=== PATIENT | female | born 1970 | race Caucasian/White ===

== ENCOUNTER 2019-04-19 08:16 | Outpatient (CLI) | payer MEDICAID, SELFPAY ==
--- NOTE | 2019-04-19 08:23 | USCV_ITS ---
Emerald Khalil Age: 48 Gender: F : 1970 Exam Date: 04/19/2019 08:51 Ordering Phys: Thong Campbell MD Technologist: Brooke Cline [place] [facility] [place]: DIZZINESS ON STANDING Risk Factors: HX STOMACH SLEEVE SURGERY, OBESITY Previous Vascular Surgery: Right Brachial BP: / Left Brachial BP: / Right Left Velocity (cm/s) Spectral Plaque Velocity (cm/s) Spectral Plaque Syst/Diast Broadening Syst/Diast Broadening 123.50/50.70 Prox CCA 118.30/ 40.80 111.40/37.50 Mid CCA 113.10/ 40.80 127.90/46.30 Distal CCA 118.30/ 43.40 86.00/ 37.50 Prox ICA 102.50/ 38.10 117.00/47.30 Mid ICA 96.00 / 48.60 126.20/53.90 Distal ICA 90.70 / 36.80 83.80 ECA 114.40 1.13 ICA/CCA 0.91 Antegrade Vertebral Antegrade 65.70/ 26.30 cm/s 59.20/ 25.00 cm/s Tri Subclavian Tri FINDINGS Minimal plaques at the bifurcations bilaterally. Intimal thickening in the common carotid arteries bilaterally. Antegrade flow in the vertebral arteries bilaterally. Normal Doppler flow velocities CONCLUSIONS Minimal plaques at the bifurcations and proximal internal carotid arteries bilaterally. No significant stenosis, based on the above findings Dr Sameer Mcdaniels MD [facility] (Electronically Signed) Final Date: 19 April 2019 19:32 S
--- NOTE | 2019-04-19 08:23 | US_ITS ---
WS: [id number] ULTRASOUND ABDOMEN LIMITED CLINICAL INFORMATION: ABDOMINAL PAIN COMPARISON: None. FINDINGS: Liver Size: Normal. Craniocaudal length: 15.5 cm. Echogenicity: Normal. Surface nodularity: None. Mass (size and location): None. Bile ducts Intrahepatic ducts: Normal. Common bile duct diameter: 3.1 mm. Gallbladder Normal. Gallstones: None. Gallbladder sludge: None. Gallbladder wall thickening: None. Pericholecystic fluid: None. Sonographic Daigle sign: Absent. Pancreas Normal as visualized. Right kidney: Normal. Hydronephrosis: None. Size: 9.7 cm x 5.1 cm x 5.2 cm. Abdominal aorta and IVC Visualized portions are normal. Ascites: None. US/US gall bladder [id number] IMPRESSION: Normal abdominal ultrasound
== END 2019-04-19 08:17 | disposition home or self-care (01) ==
LOC: RAD 08:18
PROVIDERS: Family Provider Family Medicine; PCP Nurse Practitioner Family; Visit Provider Surgery
DX: R10.9 Unspecified abdominal pain (principal); R42 Dizziness and giddiness; E66.9 Obesity, unspecified; Z98.84 Bariatric surgery status
CPT/HCPCS: 76705; 93880

== ENCOUNTER → 2019-05-17 13:13 | Outpatient (BNVA) | payer MEDICAID, SELFPAY | PROVIDERS: Family Provider Family Medicine; PCP Nurse Practitioner Family; Visit Provider Specialist | DX: G62.9 Polyneuropathy, unspecified (principal) | CPT/HCPCS: 99214 ==

== ENCOUNTER → 2019-07-14 08:06 | Outpatient (BNVA) | payer MEDICAID, SELFPAY | PROVIDERS: Family Provider Family Medicine; PCP Nurse Practitioner Family; Visit Provider Psychiatry & Neurology Psychiatry | DX: F33.42 Major depressive disorder, recurrent, in full remission (principal); F17.200 Nicotine dependence, unspecified, uncomplicated | CPT/HCPCS: 90832 ==

== ENCOUNTER → 2019-09-09 07:25 | Outpatient (BNVA) | payer MEDICAID, SELFPAY | PROVIDERS: Family Provider Family Medicine; PCP Nurse Practitioner Family; Visit Provider Psychiatry & Neurology Psychiatry | DX: F33.42 Major depressive disorder, recurrent, in full remission (principal); F17.200 Nicotine dependence, unspecified, uncomplicated | CPT/HCPCS: 99213 ==

== ENCOUNTER → 2019-12-13 07:50 | Outpatient (BNVA) | payer MEDICAID, SELFPAY | PROVIDERS: Family Provider Family Medicine; PCP Nurse Practitioner Family; Visit Provider Psychiatry & Neurology Psychiatry | DX: F33.42 Major depressive disorder, recurrent, in full remission (principal); G62.9 Polyneuropathy, unspecified; G25.81 Restless legs syndrome; Z87.891 Personal history of nicotine dependence; R29.90 Unspecified symptoms and signs involving the nervous system | CPT/HCPCS: 99213; 99214 ==

== ENCOUNTER 2019-12-13 14:59 | Outpatient (CLI) | payer MEDICAID, SELFPAY ==
[2019-12-13 16:32] LABS: CRP High Sensitivity Cardiac < 0.150 mg/dL (0.0-0.3); Creatine Phosphokinase 44 U/L (26-192); Ferritin 275 ng/mL (15-150); Iron 82 ug/dL (37-145); Percent Saturation 31.4 % (20-50); Total Iron Binding Capacity 261 mcg/dl; Unsaturated Iron Binding 179 ug/dL (112-347)
[2019-12-13 16:41] LABS: Vitamin B12 377 pg/mL (232-1245)
[2019-12-13 17:18] LABS: Erythrocyte Sedimentation Rate 20 mm/hr (0-15)
== END 2019-12-13 15:00 | disposition home or self-care (01) ==
LOC: LAB 15:03
PROVIDERS: PCP Nurse Practitioner Family; Visit Provider Specialist
DX: G62.9 Polyneuropathy, unspecified (principal); G25.81 Restless legs syndrome
CPT/HCPCS: 36415; 82550; 82607; 82728; 83540; 83550; 85651; 86141

== ENCOUNTER → 2020-02-14 07:46 | Outpatient (BNVA) | payer MEDICAID, SELFPAY | PROVIDERS: PCP Nurse Practitioner Family; Visit Provider Psychiatry & Neurology Psychiatry | DX: F33.42 Major depressive disorder, recurrent, in full remission (principal) | CPT/HCPCS: 99213 ==

== ENCOUNTER 2020-04-05 09:20 | Outpatient (CLI) | payer MEDICAID, SELFPAY ==
--- NOTE | 2020-04-05 09:30 | USCV_ITS ---
KhalilEmerald Age: 49 Gender: F : 1970 Exam Date: 04/05/2020 09:32 Ordering Phys: Gisell Jha NP Technologist: Sandi Guardado [place] [facility] [place]ication: LEFT KNEE PAIN HISTORY: Lower extremity pain. PROCEDURES: Venous duplex imaging was performed in only the left lower extremity. The following venous structures were evaluated: common femoral vein, profunda vein, proximal portion of the greater saphenous vein, superficial femoral vein, and the popliteal vein. In addition, the posterior tibial and peroneal trunk were evaluated. FINDINGS: Normal 2-D Doppler and augmentation and compressibility throughout the lower extremity venous structures. Additional imaging through the proximal calf veins also reveals no thrombus. Limited evaluation of the greater saphenous vein is patent with no thrombus.. CONCLUSIONS No evidence of left lower extremity DVT. Axel Núñez MD (Electronically Signed) Final Date: 05 April 2020 14:21 S
== END 2020-04-05 09:21 | disposition home or self-care (01) ==
LOC: RAD 09:20
PROVIDERS: PCP Nurse Practitioner Family; Visit Provider Nurse Practitioner Family
DX: M25.562 Pain in left knee (principal)
CPT/HCPCS: 93971

== ENCOUNTER → 2020-04-30 14:17 | Outpatient (BNVA) | payer MEDICAID, SELFPAY | PROVIDERS: PCP Nurse Practitioner Family; Referring Provider Nurse Practitioner Family; Visit Provider Specialist | DX: M25.562 Pain in left knee (principal); M17.0 Bilateral primary osteoarthritis of knee; D16.22 Benign neoplasm of long bones of left lower limb | CPT/HCPCS: 73560; 73565 ==

== ENCOUNTER → 2020-05-08 08:17 | Outpatient (BNVA) | payer MEDICAID, SELFPAY | PROVIDERS: PCP Nurse Practitioner Family; Visit Provider Psychiatry & Neurology Psychiatry | DX: F33.42 Major depressive disorder, recurrent, in full remission (principal) | CPT/HCPCS: 99213 ==

== ENCOUNTER 2020-06-13 11:28 | Outpatient (CLI) | payer MEDICAID, SELFPAY ==
--- NOTE | 2020-06-13 11:45 | MR_ITS ---
WS: [id number] MRI LEFT KNEE NONCONTRAST TECHNIQUE: Axial PD, coronal PD fat sat, coronal PD, sagittal PD, and sagittal PD fat-sat images obta ined. CLINICAL INFORMATION: M25.562 - Pain in left knee COMPARISON: None. FINDINGS: Advanced tricompartmental arthritis left knee. Joint space narrowing with hypertrophic changes along the joint line. Hypertrophic patella. Advanced joint space narrowing medial and lateral joint compart ments with subchondral edema in the lateral femoral condyle and tibial plateau. Hypertrophic spurring with subchondral cystic change involving the lateral tibial plateau. Gers-rb-[id number] articulation in th e medial and lateral joint compartments. Small joint effusion. Distal quadriceps and patella tendons are intact. Normal ACL and PCL. Chronic thinning of the medial and lateral meniscus. This is worse involving the lateral meniscus. Advanced chondromalacia patella. Normal patellar retinaculum. Normal popliteal fossa. Moderate diffuse edema involving the left knee s oft tissues. Lobulated ganglion cyst involving the left infrapatellar bursa measuring 2.5 x 1.5 cm. MR/MR knee LT wo con* [id number] IMPRESSION: 1. Advanced tricompartmental arthritis with hypertrophic patella. 2. Complete loss of the medial and lateral joint spaces with [id number] flaquito culation and subchondral edema involving the lateral femoral condyle and tibial plateau likely due to chronic microtrauma and degenerative change. 3. Small joint and suprapatellar effusion. 4. Advanced chondromalacia patella 5. Lobulated left eccentric infrapatellar ganglion cyst measuring 2.5 x 1.5 CM . 6. Advanced chronic thinning of the medial and lateral meniscus.
== END 2020-06-13 11:29 | disposition home or self-care (01) ==
LOC: RADSHAW 11:30
PROVIDERS: PCP Nurse Practitioner Family; Visit Provider Specialist
DX: M25.562 Pain in left knee (principal); R26.9 Unspecified abnormalities of gait and mobility; R20.0 Anesthesia of skin; R20.2 Paresthesia of skin; G25.81 Restless legs syndrome; F33.42 Major depressive disorder, recurrent, in full remission; Z87.891 Personal history of nicotine dependence
CPT/HCPCS: 73721; 99213

== ENCOUNTER → 2020-06-26 11:11 | Outpatient (BNVA) | payer MEDICAID, SELFPAY | PROVIDERS: PCP Nurse Practitioner Family; Referring Provider Specialist; Visit Provider Specialist | DX: R20.0 Anesthesia of skin (principal); R20.2 Paresthesia of skin; M54.5 Low back pain; M79.652 Pain in left thigh; M79.651 Pain in right thigh; Z87.891 Personal history of nicotine dependence | CPT/HCPCS: 95909 ==

== ENCOUNTER 2020-07-19 15:33 | Outpatient (CLI) | payer MEDICAID, SELFPAY | END 2020-07-19 15:34 | disposition home or self-care (01) | LOC: SPT 15:33 | PROVIDERS: PCP Nurse Practitioner Family; Visit Provider Specialist | DX: Z46.89 Encounter for fitting and adjustment of other specified devices (principal); M17.12 Unilateral primary osteoarthritis, left knee | CPT/HCPCS: L1812 ==

== ENCOUNTER → 2020-07-31 07:27 | Outpatient (BNVA) | payer MEDICAID, SELFPAY | PROVIDERS: PCP Nurse Practitioner Family; Visit Provider Psychiatry & Neurology Psychiatry | DX: F33.42 Major depressive disorder, recurrent, in full remission (principal); R26.9 Unspecified abnormalities of gait and mobility | CPT/HCPCS: 99214 ==

== ENCOUNTER → 2020-11-12 07:20 | Outpatient (BNVA) | payer MEDICAID, SELFPAY | PROVIDERS: PCP Nurse Practitioner Family; Visit Provider Psychiatry & Neurology Psychiatry | DX: F33.42 Major depressive disorder, recurrent, in full remission (principal) | CPT/HCPCS: 99213 ==

== ENCOUNTER 2021-01-11 14:53 | Outpatient (CLI) | payer MEDICAID, SELFPAY ==
[2021-01-11 15:29] LABS: Basophils # 0.1 10^3/uL (0.0-0.1); Basophils % 0.9 %; Eosinophils # 0.1 10^3/uL (0.0-0.8); Eosinophils % 0.5 %; Hematocrit 44.6 % (37.0-47.0); Hemoglobin 14.6 g/dL (11.5-15.3); Lymphocytes # 2.1 10^3/uL (0.8-4.8); Lymphocytes % 23.4 %; Mean Corpuscular HGB Conc 32.7 g/dL (30.0-36.0); Mean Corpuscular Hemoglobin 30.3 pg (28.0-34.0); Mean Corpuscular Volume 92.5 fl (81-99); Monocytes # 0.5 10^3/uL (0.2-0.9); Monocytes % 5.1 %; Neutrophils # 6.39 10^3/uL (1.8-7.7); Neutrophils % 69.8 %; Nucleated Red Blood Cells % 0 %; Platelet Count 269 10^3/cmm (130-400); Red Blood Count 4.82 10^6/uL (4.1-5.3); Red Cell Distribution Width 12.4 % (12.1-15.1); White Blood Count 9.2 10^3/uL (4.0-10.0)
[2021-01-11 16:20] LABS: Alanine Aminotransferase 8 U/L (0-33); Alkaline Phosphatase 78 IU/L (35-105); Anion Gap 14.3 (5-19); Aspartate Amino Transferase 14 U/L (0-32); Blood Urea Nitrogen 9 mg/dL (6-20); Calcium 9.2 mg/dL (8.5-10.5); Carbon Dioxide 25 mmol/L (22-29); Chloride 108 mmol/L (98-107); Chol HDL Ratio 3.61 mg/dL (0.0-4.40); Cholesterol 206 mg/dL (0-200); Ferritin 199 ng/mL (15-150); Globulin 2.7 g/dL (1.3-4.6); Glomerular Filtration Rate 105.4 mL/min (90-130); Glucose 80 mg/dL (65-115); HDL Cholesterol 57 mg/dL (60-100); Iron 85 ug/dL (37-145); LDL Cholesterol Calculated 130 mg/dL (50-129); LDL HDL Ratio 2.28 RATIO (0.00-3.22); Magnesium 2.1 mg/dL (1.7-2.3); Osmolality Calculated 294 mOsm/kg (285-295); Percent Saturation 27.8 % (20-50); Potassium 4.3 mmol/L (3.5-5.1); Sodium 143 mmol/L (136-145); Thyroid Stimulating Hormone 1.08 uIU/mL (0.27-4.20); Total Bilirubin 0.4 mg/dL (0.15-1.2); Total Iron Binding Capacity 305 mcg/dl; Total Protein 6.7 g/dL (6.6-8.7); Triglycerides 97 mg/dL (0-150); Unsaturated Iron Binding 220 ug/dL (112-347); Vitamin B12 174 pg/mL (232-1245)
[2021-01-11 16:24] LABS: Calcium 9.2 mg/dL (8.5-10.5)
[2021-01-11 16:25] LABS: Parathyroid Hormone 60.9 pg/mL (15-65)
[2021-01-11 18:17] LABS: Folate Level 7.5 ng/mL (4.8-37.3)
== END 2021-01-11 14:54 | disposition home or self-care (01) ==
PROVIDERS: PCP Nurse Practitioner Family; Visit Provider Surgery
DX: E88.81 Metabolic syndrome and other insulin resistance (principal)
CPT/HCPCS: 36415; 80053; 80061; 82310; 82607; 82728; 82746; 83540; 83550; 83735; 83970; 84443; 85025

== ENCOUNTER → 2021-02-11 08:28 | Outpatient (BNVA) | payer MEDICAID, SELFPAY | PROVIDERS: PCP Nurse Practitioner Family; Visit Provider Psychiatry & Neurology Psychiatry | DX: F33.42 Major depressive disorder, recurrent, in full remission (principal) | CPT/HCPCS: 99213 ==

== ENCOUNTER → 2021-02-20 15:14 | Outpatient (BNVA) | payer MEDICAID, SELFPAY | PROVIDERS: PCP Nurse Practitioner Family; Visit Provider Specialist | DX: M17.11 Unilateral primary osteoarthritis, right knee (principal) | CPT/HCPCS: 73560; 73565 ==

== ENCOUNTER 2021-05-16 17:16 | Observation (INO) | payer MEDICAID, SELFPAY ==
[2021-05-16 17:25] VITALS: BP 134/86; PULSE 80; RESP 14; TEMP 37; O2SAT 98; BMI 28.1
--- NOTE | 2021-05-16 17:57 | CTR_ITS ---
PROCEDURE INFORMATION: Exam: CT Head Without Contrast Exam date and time: 05/16/2021 5:57 PM Age: 50 years old Clinical indication: Numbness / parasthesia and visual disturbance; Left; Additional info: Stroke like symptoms. Left sided facial and arm numbness and blurred vision TECHNIQUE: Imaging protocol: Computed tomography of the head without contrast. Radiation optimization: All CT scans at this facility use at least one of these dose optimization techniques: automated exposure control; mA and/or kV adjustment per patient size (includes targeted exams where dose is matched to clinical indication); or iterative reconstruction. COMPARISON: MR head wo con* [id number] 08/28/2017 8:11 AM RADIATION DOSE METRICS: Total DLP (mGy-cm): 826.86 FINDINGS: Brain: Bifrontal cortical volume loss. No abnormal brain attenuation. No intracranial hemorrhage. Cerebral ventricles: No ventriculomegaly. Paranasal sinuses: Visualized sinuses are unremarkable. No fluid levels. Mastoid air cells: Visualized mastoid air cells are well aerated. Bones/joints: Unremarkable. No acute fracture. Soft tissues: Unremarkable. CT/CT head wo con* [id number] IMPRESSION: 1. No acute intracranial abnormality.
--- NOTE | 2021-05-16 20:29 | XRR_ITS ---
PROCEDURE INFORMATION: Exam: XR Chest Exam date and time: 05/16/2021 8:29 PM Age: 50 years old Clinical indication: Chest wall pain; Additional info: Cp TECHNIQUE: Imaging protocol: XR of the chest. Views: 1 view. COMPARISON: 1. CR XR knees AP WB w RT lmt ORTH 02/20/2021 3:[address] chest w con* [id number] 05/07/2017 10:17 PM FINDINGS: Lungs: Unremarkable. No consolidation. Pleural spaces: Unremarkable. No pleural effusion. No pneumothorax. Heart/Mediastinum: Unremarkable. No cardiomegaly. Bones/joints: Mild scoliosis. XR/XR chest 1V portable [id number] IMPRESSION: No acute findings.
--- NOTE | 2021-05-16 20:29 | ECG_ITS ---
[facility] Test Date: 2021-05-16 Pat Name: Emerald Khalil Department: Room: Gender: Female Project Design Engineer: : 1970 Requested By: Nora Brunson Order Number: [id number] Reading MD: STANLEY DE LA TORRE Measurements Intervals [place] Rate: 57 P: 41 MD: 188 QRS: -13 QRSD: 94 T: 2 QT: 399 QTc: 389 Interpretive Statements SINUS BRADYCARDIA LOW QRS VOLTAGE IN PRECORDIAL LEADS [QRS DEFLECTION < 1.0 mV IN CHEST LEADS] MINIMAL VOLTAGE CRITERIA FOR LVH, CONSIDER NORMAL VARIANT [MEETS CRITERIA IN ONE OF: R(aVL), S(V1), R(V5), R(V5/V6)+S(V1)] Compared to ECG 05/07/2017 23:10:22 Low QRS voltage now present Electronically Signed On 05-16-2021 21:47:13 MUSHROOM SPAWN MAKER by STANLEY DE LA TORRE [id number]
--- NOTE | 2021-05-16 20:35 | W.ED.NEUROSD ---
HPI - Neuro Symptoms/Deficit General: Chief Complaint: Neuro Symptoms/Deficit Stated Complaint: Her Dr Said Mini Strokes Time Seen by Provider: 05/16/21 20:27 Source: patient Mode of arrival: ambulatory Limitations: no limitations History of Present Illness: 50-year-old female who states that over the last 2 weeks she has been having these episodes of dizziness. She states that she has felt dizzy and having blurred vision and difficulty walking. States it seems to come and go states today that she had no episode at roughly noon to 1 and she also had some numbness and weakness in her left arm states it felt like rubber and was having a hard time moving it. She states that all since resolved but she getting concerned as it is becoming more common. She denies any headache denies any other complaints Associated symptoms: Deny chest pain, nausea or vomiting Review of Systems Const: Denies: fever(s), chills, body aches or change in appetite Eyes: Denies: blurry vision or eye discomfort ENMT: Denies: throat pain or dental pain Card: Denies: chest pain Resp: Denies: dyspnea GI: Denies: abdominal pain, nausea, vomiting or diarrhea : Denies: dysuria Musc: Denies: neck pain or back pain Skin/Breast: Denies: rash Neuro: Reports: dizziness Psych: Denies: depression Dion/Lymph: Denies: easy bruising All/Imm: Denies: urticaria PFSH ED PFSH: Medical History Chain smoker Major depressive disorder, recurrent, in full remission Psychiatric care Surgical History History of sleeve gastrectomy Family History Other CAD (coronary artery disease) Cancer Diabetes Hypertension Denies family history of Anesthesia complication Bleeding disorder Stroke Social History Smoking and tobacco status: former smoker Quit status (tobacco): has quit using tobacco Year quit tobacco: 2014 Second hand smoke exposure: No Alcohol intake: never Adopted: No Caregiver/support person: Yes Lives independently: Yes Household members: spouse Housing: House Marital status: service: No Current occupational status: disabled Current occupational exposures/hazards: No Pets and animals: No History of recent travel: No Sexually active: Yes Current gender identity: Female Giana/Restoration: Voodoo Special giana needs: No Agree to transfusion: No Financial difficulty paying for basics: Decline to Answer NIH stroke score NIHSS: Level Of Consciousness - 1a: 0 Level Of Consciousness Questions - 1b: Both Correct Level Of Consciousness Commands - 1c: Both Correct Best Gaze - 2: Normal Visual Carter - 3: No Visual Loss Facial Palsy - 4: Normal Motor Arm Right - 5: No Drift Motor Arm Left - 5: No Drift Motor Leg Right - 6: No Drift Motor Leg Left - 6: No Drift Limb Ataxia - 7: Absent Sensory - 8: Normal Best Language - 9: No Aphasia Dysarthia - 10: Normal Extinction And Inattention - 11: 0 Score: Total Score: 0 Physical Exam Const: COMMON NORMALS: no acute distress, patient oriented x3 and healthy appearing HENMT: COMMON NORMALS: normocephalic and atraumatic HEAD & SCALP: normocephalic and atraumatic Eye: COMMON NORMALS: Equal, round and reactive pupils present and EOMs intact bilaterally PUPIL: Yes Equal, round and reactive pupils present Neck/C-Spine: COMMON NORMALS: full ROM and supple Chest: COMMONS NORMALS: normal inspection of the chest and normal palpation of entire chest wall Resp: COMMON NORMALS: normal respiratory effort, No retractions, No use of accessory muscles and clear to auscultation bilaterally AUSCULTATION: clear to auscultation bilaterally Cardio: COMMON NORMALS: regular rate, regular rhythm and No murmurs present (Cardio) RATE: regular rate RHYTHM: regular rhythm GI: COMMON NORMALS: Normal to inspection, nondistended, normoactive bowel sounds present, Soft to palpation, non-tender and no masses PALPATION: Yes Soft to palpation Extremity: COMMON NORMALS: normal to inspection and full ROM Neuro: COMMON NORMALS: patient oriented x3, moves all extremities and no focal motor deficits Psych: COMMON NORMALS: mental status grossly normal, Normal thought process present and cooperative THOUGHT PROCESS: Normal thought process present Skin: COMMON NORMALS: no rashes or lesions noted and no wounds GENERAL SKIN EXAM: no rashes or lesions noted Course Vital Signs: Vital signs: Vital Signs Temperature 98.6 F 05/16/21 17:25 Pulse Rate 80 05/16/21 17:25 Respiratory Rate 14 05/16/21 17:25 Blood Pressure 134/86 05/16/21 17:25 Pulse Oximetry 98 05/16/21 17:25 MDM - Neuro Symptoms/Deficit Medical Decision Making Patient presents here with symptoms consistent with a TIA her symptoms have since resolved since her symptoms are worsening will admit at this time spoke to hospitalist will admit for likely MRI patient given aspirin down here work-up here is normal so far. Lab Data : 05/16/21 20:35 05/16/21 20:[address] 05/16/21 17:57 IMPRESSION: 1. No acute intracranial abnormality. Chest X-Ray 05/16/21 20:29 IMPRESSION: No acute findings. Laboratory Results WBC 10.5 10^3/uL (4.0-10.0) H 05/16/21 20:35 RBC 4.83 10^6/uL (4.1-5.3) 05/16/21 20:35 Hgb 14.7 g/dL (11.5-15.3) 05/16/21 20:35 Hct 45.6 % (37.0-47.0) 05/16/21 20:35 MCV 94.4 fl (81-99) 05/16/21 20:35 MCH 30.4 pg (28.0-34.0) 05/16/21 20:35 MCHC 32.2 g/dL (30.0-36.0) 05/16/21 20:35 RDW 12.2 % (12.1-15.1) 05/16/21 20:35 Plt Count 279 10^3/cmm (130-400) 05/16/21 20:35 MPV 8.6 fL (7.4-10.4) 05/16/21 20:35 Neut % (Auto) 59.2 % 05/16/21 20:35 Lymph % (Auto) 33.6 % 05/16/21 20:35 Harper % (Auto) 5.2 % 05/16/21 20:35 Eos % (Auto) 0.7 % 05/16/21 20:35 Baso % (Auto) 1.0 % 05/16/21 20:35 Neut # (Auto) 6.22 10^3/uL (1.8-7.7) 05/16/21 20:35 Lymph # (Auto) 3.5 10^3/uL (0.8-4.8) 05/16/21 20:35 Harper # (Auto) 0.6 10^3/uL (0.2-0.9) 05/16/21 20:35 Eos # (Auto) 0.1 10^3/uL (0.0-0.8) 05/16/21 20:35 Baso # (Auto) 0.1 10^3/uL (0.0-0.1) 05/16/21 20:35 Nucleated RBC % (auto) 0 % 05/16/21: Nucleated RBCs # 0.0 /100WBC 05/16/21 20:35 PT 12.20 SECONDS (12.1-14.9) 05/16/21 20:35 INR 0.88 (0.8-1.2) 05/16/21 20:35 Sodium 137 mmol/L (136-145) 05/16/21 20:35 Potassium 4.4 mmol/L (3.5-5.1) 05/16/21 20:35 Chloride 103 mmol/L (98-107) 05/16/21 20:35 Carbon Dioxide 24 mmol/L (22-29) 05/16/21 20:35 Anion Gap 14.4 (5-19) 05/16/21 20:35 BUN 13 mg/dL (6-20) 05/16/21 20:35 Creatinine 0.6 mg/dL (0.5-0.9) 05/16/21 20:35 GFR Calculation 105.4 mL/min (90-130) 05/16/21 20:35 Glucose 76 mg/dL (65-115) 05/16/21 20:35 Calculated Osmolality 283 mOsm/kg (285-295) L 05/16/21 20:35 Calcium 9.6 mg/dL (8.5-10.5) 05/16/21 20:35 Total Bilirubin 0.3 mg/dL (0.15-1.2) 05/16/21 20:35 AST 15 U/L (0-32) 05/16/21 20:35 ALT 13 U/L (0-33) 05/16/21 20:35 Alkaline Phosphatase 87 IU/L (35-105) 05/16/21 20:35 Troponin T Baseline 6 ng/L (0-10) 05/16/21 20:35 Total Protein 6.7 g/dL (6.6-8.7) 05/16/21 20:35 Albumin 4.3 g/dL (3.5-5.2) 05/16/21 20:35 Globulin 2.4 g/dL (1.3-4.6) 05/16/21 20:35 EKG Data EKG 1: I personally reviewed and interpreted this EKG as follows: EKG interpretation date: 05/16/21 EKG interpretation time: 21:30 Interpretation: sinus ana lilia hr [address] or t wave abnormalities qrs 94 qtc 393 Discharge Plan Discharge Patient Disposition: Admitted As Inpatient Clinical Impression: Brain TIA Condition: Stable Coding Level of Care Code ED Heating Unit Installer for Jerry Fwd Exam Comprehensive
[2021-05-16 20:47] LABS: Basophils # 0.1 10^3/uL (0.0-0.1); Eosinophils # 0.1 10^3/uL (0.0-0.8); Eosinophils % 0.7 %; Hematocrit 45.6 % (37.0-47.0); Hemoglobin 14.7 g/dL (11.5-15.3); Lymphocytes # 3.5 10^3/uL (0.8-4.8); Lymphocytes % 33.6 %; Mean Corpuscular HGB Conc 32.2 g/dL (30.0-36.0); Mean Corpuscular Hemoglobin 30.4 pg (28.0-34.0); Mean Corpuscular Volume 94.4 fl (81-99); Mean Platelet Volume 8.6 fL (7.4-10.4); Monocytes # 0.6 10^3/uL (0.2-0.9); Monocytes % 5.2 %; Neutrophils # 6.22 10^3/uL (1.8-7.7); Neutrophils % 59.2 %; Nucleated Red Blood Cells % 0 %; Platelet Count 279 10^3/cmm (130-400); Red Blood Count 4.83 10^6/uL (4.1-5.3); Red Cell Distribution Width 12.2 % (12.1-15.1); White Blood Count 10.5 10^3/uL (4.0-10.0)
[2021-05-16 21:19] LABS: INR 0.88 (0.8-1.2)
[2021-05-16 21:28] LABS: Troponin(5th) Baseline 6 ng/L (0-10)
[2021-05-16 21:29] LABS: Alanine Aminotransferase 13 U/L (0-33); Albumin Level 4.3 g/dL (3.5-5.2); Alkaline Phosphatase 87 IU/L (35-105); Anion Gap 14.4 (5-19); Aspartate Amino Transferase 15 U/L (0-32); Blood Urea Nitrogen 13 mg/dL (6-20); Calcium 9.6 mg/dL (8.5-10.5); Carbon Dioxide 24 mmol/L (22-29); Chloride 103 mmol/L (98-107); Globulin 2.4 g/dL (1.3-4.6); Glomerular Filtration Rate 105.4 mL/min (90-130); Glucose 76 mg/dL (65-115); Osmolality Calculated 283 mOsm/kg (285-295); Potassium 4.4 mmol/L (3.5-5.1); Sodium 137 mmol/L (136-145); Total Bilirubin 0.3 mg/dL (0.15-1.2); Total Protein 6.7 g/dL (6.6-8.7)
[2021-05-16 22:24] LABS: Troponin 5 2HR 7.72 ng/L (0-10)
[2021-05-16 22:35] LABS: Troponin 5 2HR Delta 1.72 ABS# (0-10)
--- NOTE | 2021-05-16 22:38 | P.HP_ITS ---
Providers/Chief Complaint Primary Care Provider: Gisell Jha NP Chief Complaint: Her Dr Said Mini Strokes History of Present Illness Emerald Khalil is a 50 year old female history of smoking, history of sleeve gastrectomy, restless leg, anxiety and depression, who presents [facility] due to diplopia, left arm numbness. Patient tells me that she has a chronic history of diplopia, double vision, typically vertical diplopia, she saw her actuarial science professor who did an eye exam and told her that her eye exam was okay, to follow-up with her primary care her diplopia continue to become more progressive, more frequent, this morning, she had a significant episode of vertical diplopia, associate with left arm numbness, left arm weakness lasted a few minutes, and abated, she presented to her primary care provider who told her to come to the emergency room, here she is asymptomatic, NIH stroke scale 0, CT head negative for acute stroke, no acute bleed, hospitalist team was called for admission for concern for TIA. Review of Systems Const: Denies: fever(s), chills, fatigue or malaise Eyes: Denies: change in vision or blurry vision ENMT: Denies: nasal congestion Card: Reports: palpitations; Denies: chest pain, irregular heart rhythm, edema, lightheadedness, syncope, pre-syncope, dyspnea on exertion or orthopnea Resp: Denies: dyspnea, productive cough, non-productive cough or wheezing GI: Denies: abdominal pain, nausea, vomiting, hematemesis, diarrhea, constipation, hematochezia or melena : Denies: flank pain, dysuria or urinary frequency Musc: Denies: neck pain or back pain Skin/Breast: Denies: rash Neuro: Reports: numbness in extremities, weakness in extremities and lack of coordination; Denies: headache(s), difficulty walking, frequent falls, dizziness, vertigo, Slurred speech present or difficulty communicating thoughts Psych: Reports: anxiety; Denies: depression Endo: Denies: polyuria or polydipsia Medications/Allergies Home Medications Medication Instructions Recorded Confirmed Last Taken Type famotidine 20 mg tablet (Pepcid) 10 mg PO BID tab 05/12/19 05/16/21 Unknown History multivitamin 1 cap PO DAILY 05/17/19 05/16/21 Unknown History omalizumab 150 mg/mL subcutaneous 300 mg SUBCUT .COMPLEX ml 05/17/19 05/16/21 Unknown History syringe (Xolair) cetirizine 10 mg tablet (All Day 10 mg PO DAILY 12/09/19 05/16/21 Unknown History Allergy (cetirizine)) montelukast 10 mg tablet 10 mg PO DAILY #30 tab 07/17/20 05/16/21 Unknown Rx (Singulair) ropinirole 0.25 mg tablet See Rx Instructions .ROUTE 07/17/20 05/16/21 Unknown Rx .COMPLEX #60 unspecified HINGED KNEE BRACE #1 ea NS 07/19/20 05/16/21 Unknown Rx sertraline 100 mg tablet (Zoloft) 100 mg PO DAILY #30 tab 07/31/20 05/16/21 Unknown Rx hydroxyzine HCl 25 mg tablet 25 mg PO QID PRN #60 tab 08/22/20 05/16/21 Unknown Rx Allergies Allergy/AdvReac Type Severity Reaction Status Date / Time amoxicillin Allergy Unknown Unknown Verified 05/16/21 14:12 Penicillins Allergy Unknown Unknown Verified 05/16/21 14:12 Latex, Natural Rubber Allergy hives Verified 05/16/21 14:12 Alpha-gal Allergy Unknown Uncoded 05/16/21 14:12 PFSH Acute PFSH: Medical History Chain smoker Major depressive disorder, recurrent, in full remission Psychiatric care Surgical History History of sleeve gastrectomy Family History Other CAD (coronary artery disease) Cancer Diabetes Hypertension Denies family history of Anesthesia complication Bleeding disorder Stroke Social History Smoking and tobacco status: former smoker Quit status (tobacco): has quit using tobacco Year quit tobacco: 2014 Second hand smoke exposure: No Alcohol intake: never Adopted: No Caregiver/support person: Yes Lives independently: Yes Household members: spouse Housing: House Marital status: service: No Current occupational status: disabled Current occupational exposures/hazards: No Pets and animals: No History of recent travel: No Sexually active: Yes Current gender identity: Female Giana/Muslim: Taoist Special giana needs: No Agree to transfusion: No Financial difficulty paying for basics: Decline to Answer Vitals/I&O/Wt Last Vital Signs Temp 98.6 F 05/16/21 17:25 Pulse 80 05/16/21 17:25 Resp 14 05/16/21 17:25 BP 134/86 05/16/21 17:25 Pulse Ox 98 05/16/21 17:25 Weight last 48 hrs Weight 81.647 kg Physical Exam Const: COMMON NORMALS: no acute distress and patient oriented x3 GENERAL APPEARANCE: cooperative, well kempt and well developed HENMT: COMMON NORMALS: normocephalic, Normal external nose present and oropharynx normal FACE & SINUS: normal facial exam NOSE: Normal external nose present Eye: COMMON NORMALS: Equal, round and reactive pupils present, EOMs intact bilaterally, conjunctivae normal and no scleral icterus CONJUNCTIVA: Yes conjunctivae normal PUPIL: Yes Equal, round and reactive pupils present Neck/C-Spine: COMMON NORMALS: full ROM, no lymphadenopathy, no JVD, Thyroid normal and No carotid bruits THYROID: Thyroid normal Lymph: LYMPHATIC: no lymphadenopathy noted Chest: COMMONS NORMALS: normal inspection of the chest Resp: COMMON NORMALS: normal respiratory effort, No retractions, No use of a ccessory muscles and clear to auscultation bilaterally AUSCULTATION: clear to auscultation bilaterally Cardio: COMMON NORMALS: regular rate, regular rhythm, S1 normal heart sound present, S2 normal heart sound present, No murmurs present (Cardio) and Peripheral pulses 2+ throughout RATE: regular rate RHYTHM: regular rhythm HEART SOUNDS: S1 normal heart sound present and S2 normal heart sound present PERIPHERAL PULSES: Peripheral pulses 2+ throughout GI: COMMON NORMALS: Normal to inspection, nondistended, normoactive bowel sounds present, Soft to palpation, non-tender and No hepatosplenomegaly present PALPATION: Yes Soft to palpation and Yes No hepatosplenomegaly present : COMMON NORMALS: Yes no CVA tenderness Extremity: COMMON NORMALS: normal to inspection, full ROM, capillary refill normal, no calf tenderness and no pedal edema Neuro: COMMON NORMALS: patient oriented x3, CN's II-XII intact bilaterally, moves all extremities, no focal motor deficits and no sensory deficits noted Psych: COMMON NORMALS: mental status grossly normal, Normal thought process present, cooperative and speech normal APPEARANCE: Yes well kempt SPEECH: Yes normal speech THOUGHT PROCESS: Normal thought process present Skin: COMMON NORMALS: turgor normal and no jaundice GENERAL SKIN EXAM: turgor normal Data : 05/16/21 20:35 05/16/21 20:35 A&P Assessment and plan (1) Brain TIA: Status: Acute (2) Vertical diplopia: Status: Acute Plan TIA with vertical diplopia -Current NIH stroke scale 0 -CT of the head negative for acute stroke -Has received aspirin 325 -Continue neurochecks, NIH stroke scale, -Monitor for diplopia -Aspirin, statin -Continue gentle IV hydration -History of sleeve gastrectomy, Protonix 40 twice daily -Advised to quit smoking -Cardiac echo, carotid ultrasound -Does have complaints of intermittent palpitations, telemetry monitoring, does have a family history of atrial fibrillation, consider discharging on event monitor -We will hold off on brain MRI -As she has chronic complaints of vertical diplopia, order TSH, acetylcholine receptor antibodies, B12, folate, ESR, likely will need to follow-up with neurology as outpatient -Full code -Lovenox for DVT prophylaxis Attestations Medical Necessity Statement*: Patient requires hospitalization, outpatient wit h observation, for TIA Coding Level of Care Code Acute Cheesemaking Laborer for Jerry Reyes Diagnoses Brain TIA G45.9 Vertical diplopia H53.2
[2021-05-16] MEDS: aspirin 81 mg Chew Tablet 324 MG PO (23:08)
[2021-05-16 23:09] VITALS: BP 129/84; PULSE 82; RESP 16; TEMP 37; O2SAT 98
[2021-05-16 23:46] LABS: Erythrocyte Sedimentation Rate 27 mm/hr (0-15)
[2021-05-17] LABS: Estmated Average Glucose 111; Hemoglobin A1C 5.5 % (4.0-6.0)
[2021-05-17 00:32] LABS: Chol HDL Ratio 3.77 mg/dL (0.0-4.40); Cholesterol 260 mg/dL (0-200); HDL Cholesterol 69 mg/dL (60-100); LDL Cholesterol Calculated 173 mg/dL (50-129); LDL HDL Ratio 2.51 RATIO (0.00-3.22); Thyroid Stimulating Hormone 1.02 uIU/mL (0.27-4.20); Triglycerides 88 mg/dL (0-150)
[2021-05-17 01:42] VITALS: BP 135/74; PULSE 79; RESP 16; TEMP 37; O2SAT 97
[2021-05-17 02:59] LABS: Vitamin B12 159 pg/mL (232-1245)
[2021-05-17 03:00] LABS: Folate Level 6.4 ng/mL (4.8-37.3)
[2021-05-17 04:00] LABS: Troponin 5 6HR Delta 0 ng/L (0-12)
[2021-05-17 04:22] VITALS: BP 142/86; PULSE 75; RESP 16; TEMP 37; O2SAT 97
--- NOTE | 2021-05-17 05:00 | USCV_ITS ---
Emerald Khalil Age: 50 Gender: F : 1970 Exam Date: 05/17/2021 05:21 Ordering Phys: Derrell Miller MD Technologist: Padmini Rojo Exam Location: [facility] – [place] Indication: LT EYE VISION LOSS BP: / HR: 52 Rhythm: Sinus Technical Quality: Adequate MEASUREMENTS (Male / Female) Normal Values 2D ECHO LV Diastolic Diameter PLAX 3.6 cm 4.2 - 5.9 / 3.9 - 5.3 cm LV Systolic Diameter PLAX 2.5 cm LV Chamber Size 4.1 cm IVS Diastolic Thickness 1.0 cm 0.6 - 1.0 / 0.6 - 0.9 cm IVS Systolic Thickness 1.7 cm LVPW Diastolic Thickness 1.2 cm 0.6 - 1.0 / 0.6 - 0.9 cm LVPW Systolic Thickness 1.7 cm RV Chamber Size 3.4 cm LVOT Diameter 2.0 cm LV Ejection Fraction 2D Teich 60.9 % LV Ejection Fraction MOD 2C 57.5 % LV Ejection Fraction 2C AL 59.7 % LA Diameter 2.3 cm LA Width 3.7 cm LA Height 4.0 cm RA Width 3.3 cm RA Height 3.5 cm Aorta at Sinotubular Diameter 3.1 cm M-MODE Aortic Annulus Diameter 3.2 cm LA Ao Ratio MM 0.8 MV E Point Septal Separation 0.2 cm DOPPLER AV Peak Velocity 128.0 cm/s LVOT Peak Velocity 84.0 cm/s AV Area Cont Eq vti 1.9 cm squared AV Area Cont Eq pk 2.1 cm squared MV Area PHT 4.9 cm squared Mitral E to A Ratio 1.3 MV E' Velocity 47.0 cm/s Mitral E to MV E' Ratio 6.8 Mitral E to LV E' Lateral Ratio 5.6 Mitral E to LV E' Septal Ratio 8.6 TR Peak Velocity 216.9 cm/s TR Peak Gradient 18.8 mmHg TR Mean Velocity 138.2 cm/s TR Mean Gradient 8.8 mmHg TR Velocity Time Integral 40.3 cm TV Peak E Velocity 69.0 cm/s Right Atrial Pressure 3.0 mmHg Pulmonary Artery Systolic Pressu 21.8 mmHg PV Peak Velocity 43.0 cm/s RV Acceleration Time 0.2 s RV Ejection Time 0.4 s RV AcT/ET 0.5 FINDINGS Left Ventricle Normal left ventricular size. LV systolic function is normal with EF of 55-60%. No regional wall motion abnormalities. Right Ventricle The right ventricle is normal in size and function. Right Atrium The right atrium is normal in size. Left Atrium The left atrium is normal in size. Mitral Valve Structurally normal mitral valve without significant stenosis or prolapse. There is no mitral regurgitation. Aortic Valve Grossly normal without significant stenosis. There is no aortic regurgitation. Tricuspid Valve Not well visualized. Trace tricuspid regurgitation. Pulmonary artery systolic pressure is normal. Pulmonic Valve Not visualized Pericardium Normal pericardium without effusion. Aorta Normal ascending aorta dimension. CONCLUSIONS Technically limited quality echocardiogram because of poor ultrasonic windows. LV systolic function is normal with EF of 55-60% Valvular structures are not well-visualized however are grossly normal. No comparison studies are available Van Frazier MD (Electronically Signed) Final Date: 17 May 2021 12:48 S
--- NOTE | 2021-05-17 05:00 | USCV_ITS ---
Emerald Khalil Age: 50 Gender: F : 1970 Exam Date: 05/17/2021 05:48 Ordering Phys: Derrell Miller MD Technologist: Padmini Rojo [place] [facility] [place]: DIPLOPIA LT EYE Risk Factors: Unknown Previous Vascular Surgery: None Right Brachial BP: / Left Brachial BP: / Right Left Velocity (cm/s) Spectral Plaque Velocity (cm/s) Spectral Plaque Syst/Diast Broadening Syst/Diast Broadening 111.40/40.80 Prox CCA 89.40 / 21.00 87.10/ 30.90 Mid CCA 70.60 / 26.50 73.90/ 24.30 Distal CCA 51.80 / 20.90 68.40/ 25.40 Hetro Prox ICA 72.80 / 28.70 Hetro 68.40/ 26.50 Mid ICA 63.90 / 37.50 94.80/ 35.30 Distal ICA 72.80 / 30.90 73.90 ECA 84.90 0.85 ICA/CCA 0.81 Antegrade Vertebral Antegrade 42.20/ 17.10 cm/s 58.60/ 26.70 cm/s Tri Subclavian Tri 122.3 118.6 0 0 CONCLUSIONS Right ICA stenosis <50%. Mild atheromatous plaque right carotid bulb/ICA. Left ICA stenosis <50%. Mild atheromatous plaque left carotid bulb/ICA. Normal antegrade Doppler flow noted in the right vertebral artery. Normal antegrade Doppler flow noted in the left vertebral artery. Axel Núñez MD (Electronically Signed) Final Date: 17 May 2021 09:22 S
[2021-05-17] MEDS: enoxaparin 40 mg/0.4 mL Syringe SUBCUT (05:30)
[2021-05-17] MEDS: sodium chloride 0.9% 1,000 ML 75 ML IV (05:30)
[2021-05-17] MEDS: atorvastatin 40 mg Tablet 80 MG PO (05:30)
[2021-05-17] MEDS: pantoprazole DR 40 mg Tablet PO ×2 (09:52→17:32)
[2021-05-17] MEDS: multivitamin therapeutic Tablet 1 TAB PO (09:52)
[2021-05-17] MEDS: sertraline 100 mg Tablet PO (09:52)
[2021-05-17] MEDS: aspirin 81 mg EC Tablet PO (09:52)
--- NOTE | 2021-05-17 10:00 | PC.NURSE ---
PT STATED SHE TAKES HER REQUIP AT NIGHT AND REFUSED HER MORNING DOSE.
--- NOTE | 2021-05-17 12:04 | MR_ITS ---
WS: [id number] MRI HEAD WITHOUT CONTRAST TECHNIQUE: Sagittal T1, T2 axial, T2 axial FLAIR, axial and coronal T1 images, axial susceptibility w eighted imaging, axial diffusion weighted images, and coronal T2 images were obtained. CLINICAL INFORMATION: evalite for CVA COMPARISON: CT head May 16, 2021 and MRI August 28, 2017 FINDINGS: No evidence of restricted diffusion to suggest acute ischemia. Ventricular system and basal cisterns are patent. No suspicious intracranial signal abnormalities. Normal castorena-white differentiation. Normal posterior fossa. Normal vascular flow voids at the skull base. No extra-axial fluid collections. No evidence of mass or mass effect. Mild mucosal thickening in the paranasal sinuses. Mastoid air cells are well aerated. No hemosiderin on the susceptibly weighted images. Normal optic chiasm and pituitary infundibulum. Normal temporal l obes and hippocampal formations. MR/MR head wo con* [id number] IMPRESSION: 1. No evidence of restricted diffusion to suggest acute ischemia. 2. No suspicious intracranial signal abnormalities. Normal castorena-white differen tiation. 3. Mild parenchymal volume loss. 4. Mild mucosal thickening in the paranasal sinuses. Mastoid air cells are wel l aerated. 5. No hemosiderin on susceptibly weighted images. 6. No other significant findings.
[2021-05-17 12:39] VITALS: BMI 28.1
[2021-05-17 13:28] VITALS: BP 107/78; PULSE 62; RESP 16; O2SAT 98
[2021-05-17 14:00] VITALS: PULSE 55
[2021-05-17 15:49] VITALS: BP 132/80; PULSE 63; RESP 18; TEMP 36.6; O2SAT 99
--- NOTE | 2021-05-17 16:34 | PM.DCS ---
Discharge Providers Date of Admission: 05/17/21 00:02 Date of Discharge: May 17, 2021 Attending Provider at Admission: Derrell Miller MD Attending Provider at Discharge: Carmen Lewis MD Primary Care Provider: Gisell Jha NP Diagnoses at Discharge Discharge Diagnosis (1) Brain TIA: Status: Acute (2) Vertical diplopia: Status: Acute Reason for Visit Reason for Visit: Her Dr Said Mini Strokes Hospital Course Hospital Course Patient admitted on 05/17 overnight due to concerns for TIA after having transient diplopia, left arm heaviness and left facial weakness with h/o similar episodes dating back at least to early 2020. Most episodes last few seconds to minutes however this current one on 05/16 persisted ~4-5 min for which patient came to ER. NIHSS 0. No progression of symptoms during admission. Ct head negative for CVA. MRI head without acute infarct. Carotid doppler <50% stenosis B/L, echo, NANCI panel and Ach AB pending at discharge, to be followed up by PCP as outpatient. No events on telemetry. Patient remained symptom free during course of observation. Recommended to f/up with neurology as outpatient.Patient prefers to go to [place] for the same. ASA and statins added to regimen. Differentials include TIA, migraine (has prior h/o same), less likely demyelinating disorder. 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 echo complete* [id number] Routine Ultrasound 05/17/21 05:00 Completed Pending at discharge Category Date Time Status NANCI Profile Rheumatology Routine Lab 05/17/21 15:24 Ordered Acetylcholine Receptor Binding Routine Lab 05/17/21 05:00 Received Complete Blood Count w/Auto AM LABS Lab 05/18/21 04:00 Ordered Complete Blood Count w/Auto AM LABS Lab 05/19/21 04:00 Ordered Complete Blood Count w/Auto AM LABS Lab 05/20/21 04:00 Ordered Comprehensive Metabolic Panel AM LABS Lab 05/18/21 04:00 Ordered Comprehensive Metabolic Panel AM LABS Lab 05/19/21 04:00 Ordered Comprehensive Metabolic Panel AM LABS Lab 05/20/21 04:00 Ordered Magnesium AM LABS Lab 05/18/21 04:00 Ordered Magnesium AM LABS Lab 05/19/21 04:00 Ordered Magnesium AM LABS Lab 05/20/21 04:00 Ordered Radiology Impressions Head CT 05/16/21 17:57 IMPRESSION: 1. No acute intracranial abnormality. Chest X-Ray 05/16/21 20:29 IMPRESSION: No acute findings. Head MRI 05/17/21 12:04 IMPRESSION: 1. No evidence of restricted diffusion to suggest acute ischemia. 2. No suspicious intracranial signal abnormalities. Normal castorena-white differentiation. 3. Mild parenchymal volume loss. 4. Mild mucosal thickening in the paranasal sinuses. Mastoid air cells are well aerated. 5. No hemosiderin on susceptibly weighted images. 6. No other significant findings. Laboratory Results WBC 10.5 10^3/uL (4.0-10.0) H 05/16/21 20:35 RBC 4.83 10^6/uL (4.1-5.3) 05/16/21 20:35 Hgb 14.7 g/dL (11.5-15.3) 05/16/21 20:35 Hct 45.6 % (37.0-47.0) 05/16/21 20:35 MCV 94.4 fl (81-99) 05/16/21 20:35 MCH 30.4 pg (28.0-34.0) 05/16/21 20:35 MCHC 32.2 g/dL (30.0-36.0) 05/16/21 20:35 RDW 12.2 % (12.1-15.1) 05/16/21 20:35 Plt Count 279 10^3/cmm (130-400) 05/16/21 20:35 MPV 8.6 fL (7.4-10.4) 05/16/21 20:35 Neut % (Auto) 59.2 % 05/16/21 20:35 Lymph % (Auto) 33.6 % 05/16/21 20:35 [place] % (Auto) 5.2 % 05/16/21 20:35 Eos % (Auto) 0.7 % 05/16/21 20:35 Baso % (Auto) 1.0 % 05/16/21 20:35 Neut # (Auto) 6.22 10^3/uL (1.8-7.7) 05/16/21 20:35 Lymph # (Auto) 3.5 10^3/uL (0.8-4.8) 05/16/21 20:35 [place] # (Auto) 0.6 10^3/uL (0.2-0.9) 05/16/21 20:35 Eos # (Auto) 0.1 10^3/uL (0.0-0.8) 05/16/21 20:35 Baso # (Auto) 0.1 10^3/uL (0.0-0.1) 05/16/21 20:35 Nucleated RBC % (auto) 0 % 05/16/21 20:35 Nucleated RBCs # 0.0 /100WBC 05/16/21 20:35 ESR 27 mm/hr (0-15) H 05/16/21 20:35 PT 12.20 SECONDS (12.1-14.9) 05/16/21 20:35 INR 0.88 (0.8-1.2) 05/16/21 20:35 Sodium 137 mmol/L (136-145) 05/16/21 20:35 Potassium 4.4 mmol/L (3.5-5.1) 05/16/21 20:35 Chloride 103 mmol/L (98-107) 05/16/21 20:35 Carbon Dioxide 24 mmol/L (22-29) 05/16/21 20:35 Anion Gap 14.4 (5-19) 05/16/21 20:35 BUN 13 mg/dL (6-20) 05/16/21 20:35 Creatinine 0.6 mg/dL (0.5-0.9) 05/16/21 20:35 GFR Calculation 105.4 mL/min (90-130) 05/16/21 20:35 Glucose 76 mg/dL (65-115) 05/16/21 20:35 Estimat Average Glucose 111 05/16/21 20:35 Hemoglobin A1c 5.5 % (4.0-6.0) 05/16/21 20:35 Calculated Osmolality 283 mOsm/kg (285-295) L 05/16/21 20:35 Calcium 9.6 mg/dL (8.5-10.5) 05/16/21 20:35 Total Bilirubin 0.3 mg/dL (0.15-1.2) 05/16/21 20:35 AST 15 U/L (0-32) 05/16/21 20:35 ALT 13 U/L (0-33) 05/16/21 20:35 Alkaline Phosphatase 87 IU/L (35-105) 05/16/21 20:35 Troponin T Baseline 6 ng/L (0-10) 05/16/21 20:35 Troponin T 120 Minute 7.72 ng/L (0-10) 05/16/21 21:54 Delta Troponin T 1.72 ABS# (0-10) 05/16/21 21:54 Troponin T Hi Sens 6Hr 6.00 ng/L (0-10) 05/17/21 02:38 Troponin T Hi Sens 6Hr Delta 0 ng/L (0-12) 05/17/21 02:38 Total Protein 6.7 g/dL (6.6-8.7) 05/16/21 20:35 Albumin 4.3 g/dL (3.5-5.2) 05/16/21 20:35 Globulin 2.4 g/dL (1.3-4.6) 05/16/21 20:35 Triglycerides 88 mg/dL (0-150) 05/16/21 20:35 Cholesterol 260 mg/dL (0-200) H 05/16/21 20:35 LDL Cholesterol, Calc 173 mg/dL (50-129) H 05/16/21 20:35 HDL Cholesterol 69 mg/dL (60-100) 05/16/21 20:35 LDL/HDL Ratio 2.51 RATIO (0.00-3.22) 05/16/21 20:35 Cholesterol/HDL Ratio 3.77 mg/dL (0.0-4.40) 05/16/21 20:35 Vitamin B12 159 pg/mL (232-1245) L 05/16/21 20:35 Folate 6.4 ng/mL (4.8-37.3) 05/16/21 20:35 TSH 1.02 uIU/mL (0.27-4.20) 05/16/21 20:35 Vitals Last Vital Signs Temp 97.9 F 05/17/21 15:49 Pulse 63 05/17/21 15:49 Resp 18 05/17/21 15:49 BP 132/80 05/17/21 15:49 Pulse Ox 99 05/17/21 15:49 Discharge Plan Discharge Patient Disposition: Home Condition: Stable Prescriptions: New atorvastatin 40 mg Tablet 40 mg PO BEDTIME 30 Days Qty: 30 0RF aspirin 81 mg Tablet,Delayed Release (Dr/Ec) 81 mg PO DAILY 30 Days Qty: 30 0RF Continued (DME) HINGED KNEE BRACE See Rx Instructions .Route .MEDSUPPLY Qty: 1 0RF Rx Instructions: As directed Xolair 150 mg/mL syringe 300 mg SUBCUT .COMPLEX 0RF Rx Instructions: 300 mg SUBCUT ; famotidine [Pepcid] 20 mg tablet 10 mg PO BID 0RF cetirizine [All Day Allergy (cetirizine)] 10 mg tablet 10 mg PO DAILY 0RF sertraline [Zoloft] 100 mg tablet 100 mg PO DAILY Qty: 30 11RF montelukast [Singulair] 10 mg tablet 10 mg PO DAILY Qty: 30 11RF hydroxyzine HCl 25 mg tablet 25 mg PO QID PRN (Reason: anxiety) Qty: 60 5RF Vitamin C 500 mg Tablet 500 mg PO DAILY 0RF ropinirole 0.25 mg Tablet 0.25 mg PO BID 0RF vitamin O16-lxoge acid 0.5-1 mg Tablet 1 tab PO DAILY 0RF Discharge Orders: Discharge Order (Routine); Ordered 05/17/21 Ordered By: Carmen Lewis Referrals: Gisell Jha, CAPACITOR INSPECTOR [Primary Care Provider] - 7-10 days Discharge Diet: Usual diet Discharge Activity: Resume usual activity Patient Instructions: Opioid Safety Discharge Attestations Time Spent in Discharge Care*: greater than 30 min Quality Metrics Clinical Quality Measures [ No reported AMI, CVA or VTE this stay] Coding Level of Care Code Acute Chg FW DC note Diagnoses Brain TIA G45.9 Vertical diplopia H53.2
[2021-05-17] MEDS: ropinirole 0.25 mg Tablet PO (17:32)
--- NOTE | 2021-05-17 18:03 | PC.NURSE ---
karson verbalizes understanding of discharge instructions, home medications, and having to make follow up appointments.
[2021-05-17 18:08] VITALS: BP 132/80; PULSE 63; RESP 18; TEMP 36.6; O2SAT 99
[2021-05-19 23:27] LABS: Acetylcholine Receptor Binding <0.30 nmol/L
== END 2021-05-17 18:08 | disposition home or self-care (01) ==
LOC: ER 22:09 → ER IP 05-17 07:08 → MEDSURG 05-17 12:31
PROVIDERS: Admitting Provider Family Medicine; Emergency Provider Emergency Medicine; PCP Nurse Practitioner Family; Visit Provider Student in an Organized Health Care Education/Training Program
DX: G45.9 Transient cerebral ischemic attack, unspecified (principal); H53.2 Diplopia; F33.42 Major depressive disorder, recurrent, in full remission; F17.210 Nicotine dependence, cigarettes, uncomplicated; Z98.84 Bariatric surgery status; Z82.49 Family history of ischemic heart disease and other diseases of the circulatory system; Z83.3 Family history of diabetes mellitus
CPT/HCPCS: 70450; 70551; 71045; 80053; 80061; 82607; 82746; 83036; 83519; 84443; 84484; 85025; 85610; 85651; 93005; 93306; 93880; 96372; 97161; 97165; 99285; G0378; J1650; J7030

== ENCOUNTER → 2021-06-18 12:52 | Outpatient (BNVA) | payer MEDICAID, SELFPAY | PROVIDERS: PCP Nurse Practitioner Family; Visit Provider Specialist | DX: H53.2 Diplopia (principal); E53.8 Deficiency of other specified B group vitamins; R26.9 Unspecified abnormalities of gait and mobility; Z87.891 Personal history of nicotine dependence | CPT/HCPCS: 99214; 99215 ==

== ENCOUNTER → 2021-06-27 07:35 | Outpatient (BNVA) | payer MEDICAID, SELFPAY | PROVIDERS: PCP Nurse Practitioner Family; Visit Provider Psychiatry & Neurology Psychiatry | DX: F33.42 Major depressive disorder, recurrent, in full remission (principal) | CPT/HCPCS: 99214 ==

== ENCOUNTER → 2021-07-17 13:16 | Outpatient (BNVA) | payer MEDICAID, SELFPAY | PROVIDERS: PCP Nurse Practitioner Family; Visit Provider Surgery | DX: R22.41 Localized swelling, mass and lump, right lower limb (principal); E53.8 Deficiency of other specified B group vitamins; Z90.3 Acquired absence of stomach [part of] | CPT/HCPCS: 99213 ==

== ENCOUNTER 2021-07-23 08:26 | Day surgery (SDC) | payer MEDICAID, SELFPAY ==
[2021-07-22 09:02] VITALS: BMI 30.3
[2021-07-23] VITALS (8 sets, daily range): BP systolic 95–136; BP diastolic 50–83; PULSE 49–69; RESP 14–22; TEMP 36.4–36.6; O2SAT 97–100
[2021-07-23] MEDS: sodium chloride 0.9% 1,000 ML 30 ML IV (09:05)
--- NOTE | 2021-07-23 09:57 | ANES.PREANE2 ---
Pre-Anesthetic Assessment Height/Weight: Height 1.68 m Weight 85.275 kg Temp Pulse Resp BP Pulse Ox 97.5 F L 69 18 135/83 98 07/23/21 08:44 07/23/21 08:44 07/23/21 08:44 07/23/21 08:44 07/23/21 08:44 Preop Diagnosis: Right thigh mass Operation Date: 07/23/21 10:00 Proposed Procedures p Excision Mass right thigh 72260/r22.41(Right) - Thong Campbell MD Familial anesthetic complications: None Was Beta Zena taken within 24 hours: N/A Was Clonidine taken within 24 hours: N/A Last intake: Intake Last Liquid Date 07/22/21 Last Liquid Time 00:00 Last Solid Date 07/22/21 Last Solid Time 22:00 Social No alcohol and No tobacco Exam alert, oriented x 3, clear to auscultation bilaterally and regular rate & rhythm Airway Submandibular: within normal limits Cervical ROM: within normal limits Mallampati: Class II CV/HEM Anemia Metabolic Morbid Obesity Urticaria, alpha-GAL Neuropsych Anxiety, Depression and Neuropathy Anesthetic Plan ASA status: 2 Anesthesia: Choice Medications/Allergies Home Medications Medication Instructions Recorded Confirmed Last Taken Type famotidine 20 mg tablet (Pepcid) 10 mg PO BID tab 05/12/19 07/23/21 07/23/21 History cetirizine 10 mg tablet (All Day 10 mg PO DAILY 12/09/19 07/23/21 07/23/21 History Allergy (cetirizine)) montelukast 10 mg tablet 10 mg PO DAILY #30 tab 07/17/20 07/23/21 07/23/21 Rx (Singulair) ascorbic acid (vitamin C) 500 mg 500 mg PO DAILY 05/17/21 07/23/21 07/22/21 History tablet (Vitamin C) ropinirole 0.25 mg tablet 0.25 mg PO BID 05/17/21 07/22/21 Unknown History hydroxyzine HCl 25 mg tablet 25 mg PO QID PRN #60 tab 06/12/21 07/22/21 Unknown Rx sertraline 100 mg tablet (Zoloft) 100 mg PO DAILY #30 tab 06/27/21 07/23/21 07/22/21 Rx cyanocobalamin (vitamin B-12) See Rx Instructions .ROUTE 07/10/21 07/23/21 07/20/21 Rx 1,000 mcg/mL injection solution .COMPLEX #10 ml Allergies Allergy/AdvReac Type Severity Reaction Status Date / Time amoxicillin Allergy Unknown Unknown Verified 07/19/21 16:53 Penicillins Allergy Unknown Unknown Verified 07/19/21 16:53 Latex, Natural Rubber Allergy hives Verified 07/19/21 16:53 Alpha-gal Allergy ALGY-Anaphy Uncoded 07/22/21 08:51 laxis Current Medications Generic Name Dose Route Start Last Admin Trade Name Marcusq PRN Reason Stop Dose Admin Sodium Chloride 1,000 mls @ 30 mls/hr 07/23/21 08:45 07/23/21 09:05 Sodium Chloride 0.9% IV 07/24/21 08:44 30 mls/hr .Q24H RUFUS Administration PFSH Anesthesia Medical History (Updated 07/22/21 @ 08:56 by Allyson Silva) Chain smoker Major depressive disorder, recurrent, in full remission Psychiatric care Surgical History (Updated 07/22/21 @ 09:01 by Allyson Silva) History of sleeve gastrectomy Family History Other CAD (coronary artery disease) Cancer Diabetes Hypertension Denies family history of Anesthesia complication Bleeding disorder Stroke Social History Smoking and tobacco status: former smoker (6 years) Quit status (tobacco): has quit using tobacco Year quit tobacco: 2014 Second hand smoke exposure: No Alcohol intake: never Adopted: No Caregiver/support person: Yes Lives independently: Yes Household members: spouse Housing: House Marital status: service: No Current occupational status: disabled Current occupational exposures/hazards: No Pets and animals: No History of recent travel: No Sexually active: Yes Current gender identity: Female Giana/Presybeterian: Gnosticism Special giana needs: No Agree to transfusion: No Financial difficulty paying for basics: Decline to Answer Data Anesthesia Cardiac Studies: Echocardiogram 05/17/21
--- NOTE | 2021-07-23 09:59 | W.PM.OPSUD ---
Surgery/Procedure H&P Update DATE OF PROCEDURE: July 23, 2021 DATE H&P PERFORMED: 07/17/21 H&P UPDATE INFORMATION: I have reviewed H&P completed within last 30 days, I have examined patient prior to procedure and No changes to prior documentation PREOP DIAGNOSIS: Right thigh mass PRIMARY INDICATION FOR PROCEDURE: The same PLANNED PROCEDURE: Operation Date: 07/23/21 10:00 Proposed Procedures p Excision Mass right thigh 64106/r22.41(Right) - Thong Campbell MD
[2021-07-23] MEDS: clindamycin 900 MG/50 ML PREMIX 100 MG IV (10:10)
[2021-07-23] MEDS: lidocaine 2% INJ 20 mL INJECTION (10:32)
--- NOTE | 2021-07-23 10:41 | P.OP_ITS ---
Operative Report Date of procedure: July 23, 2021 Pre-op diagnosis: Preop Diagnosis Right thigh mass Post-op findings: Right thigh mass likely hemangioma Procedure done: Excision of right thigh mass 2 x 1.2 cm x 2 mm thickness Specimens removed/disposition: Right thigh mass Surgeon: Thong Campbell MD Shift Supervisor Film Processing: garage door technician Danilo Circulating nurses Clara Estimated blood loss (mL): 2 Procedure: After identifying the patient holding area, the right thigh mass was marked before the procedure by myself, patient was then taken to the operative suite, was placed in supine position, IV propofol was infused by the anesthesia, prophylactic IV antibiotics were given per protocol, prep and drape of the right thigh region was done under the usual sterile technique. Time-out was done verifying the patient's name/date of /planned procedure and destination after the procedure, all were in agreement. After palpation of the right thigh mass and.I did an elliptical incision on top of the Hemangioma like mass corresponding to the skin crease increase with appropriate safety margin, dissection was carried after the skin incision all the way to the subcutaneous tissues, short sutures marked superior and long sutures marked lateral, the specimen was then passed to the circulating nurse for permanent pathology. I did raise subcutaneous flaps medial and lateral to accommodate closure Without tension. Measurements of the mass 2 x 1.2 cm x 2 mm thickness Hemostasis was achieved using Bovie cauterization,followed by deep dermal closure by 3-0 Vicryl, then 4-0 Monocryl for skin closure.Lidocaine 2% was injected at the site of the incision, followed by Mastisol and Steri-Strips. Tegaderm and pressure dressing. Patient tolerated the procedure well, count of instruments, needles and sponges were completed at the end of the procedure. And then patient was taken to the recovery area in stable condition. I Was present for the whole entire procedure
[2021-07-23] MEDS: fentaNYL 50 mcg/mL INJ 2mL IVP (11:00)
[2021-07-23] MEDS: TRAMadol 50 mg Tablet PO (11:48)
--- NOTE | 2021-07-23 13:20 | ANE.PACU2 ---
Inpatient post-anesthesia follow up: Airway intact: Yes Vital signs: Temperature 97.6 F Pulse Rate 59 Respiratory Rate 18 Blood Pressure 136/64 Pulse Oximetry 98 Oxygen Delivery Me thod Room Air Oxygen Flow Rate 6 Fraction of Inspir ed Oxygen Hydration adequate: Yes Nausea and vomiting: No Pain level: 2 Mental status: Baseline
== END 2021-07-23 12:05 | disposition home or self-care (01) ==
PROVIDERS: PCP Nurse Practitioner Family; Visit Provider Surgery
PROC: (CPT 11402; principal; 2021-07-23 09:50)
DX: R22.41 Localized swelling, mass and lump, right lower limb (principal); E66.01 Morbid (severe) obesity due to excess calories; Z68.30 Body mass index [BMI] 30.0-30.9, adult; F41.9 Anxiety disorder, unspecified; F32.9 Major depressive disorder, single episode, unspecified; G62.9 Polyneuropathy, unspecified; Z87.891 Personal history of nicotine dependence; E53.8 Deficiency of other specified B group vitamins; Z98.84 Bariatric surgery status; Z82.49 Family history of ischemic heart disease and other diseases of the circulatory system; Z83.3 Family history of diabetes mellitus
CPT/HCPCS: 11402; 12031; 88309; J2704; J3010; J3490; J7030

== ENCOUNTER → 2021-08-01 10:55 | Outpatient (BNVA) | payer MEDICAID, SELFPAY | PROVIDERS: PCP Nurse Practitioner Family; Visit Provider Specialist | DX: M17.0 Bilateral primary osteoarthritis of knee (principal); Z71.89 Other specified counseling; Z87.891 Personal history of nicotine dependence | CPT/HCPCS: 20610; J1100; J2795; J3301 ==

== ENCOUNTER → 2021-09-27 08:36 | Outpatient (BNVA) | payer MEDICAID, SELFPAY | PROVIDERS: PCP Nurse Practitioner Family; Visit Provider Nurse Practitioner Family | DX: R53.83 Other fatigue (principal); M54.2 Cervicalgia; M25.511 Pain in right shoulder; Z68.30 Body mass index [BMI] 30.0-30.9, adult | CPT/HCPCS: 80053; 82607; 85025; 86000; 86140; 86618; 86666; 86757 ==

== ENCOUNTER → 2021-10-03 14:32 | Outpatient (BNVA) | payer MEDICAID, SELFPAY | PROVIDERS: PCP Nurse Practitioner Family; Visit Provider Nurse Practitioner Family | DX: M54.2 Cervicalgia (principal); M25.511 Pain in right shoulder | CPT/HCPCS: 72040; 73030 ==

== ENCOUNTER 2021-10-04 16:21 | Emergency (ER) | payer MEDICAID, SELFPAY ==
[2021-10-04 16:58] VITALS: BP 145/93; PULSE 70; RESP 18; TEMP 37.1; O2SAT 98; BMI 29.0
--- NOTE | 2021-10-04 17:33 | XRR_ITS ---
PROCEDURE INFORMATION: Exam: XR Right Ribs with PA Chest Exam date and time: 10/04/2021 5:40 PM Age: 51 years old Clinical indication: Other: Pain in bottom right ribs; Additional info: Right rib pain TECHNIQUE: Imaging protocol: Radiologic exam of the Right ribs with PA chest. Views: 3 views COMPARISON: CR XR chest 1V portable [id number] 05/16/2021 8:55 PM FINDINGS: Lungs: Unremarkable. No consolidation. Pleural spaces: No pleural effusion. No pneumothorax. Heart/Mediastinum: Unremarkable. No cardiomegaly. Bones/joints: Unremarkable. No right rib fracture demonstrated. XR/XR ribs RT mn 3V w CXR1V [id number] IMPRESSION: No acute abnormality demonstrated.
--- NOTE | 2021-10-04 17:34 | ED_ITS ---
HPI - General Adult General: Chief complaint: General Medical Stated complaint: right rib pain Time Seen by Provider: 10/04/21 17:11 History of Present Illness: Patient is a 51-year-old female comes to the ED with right rib pain. Patient states that 4 days ago her symptoms started. She was pulling some roots out of the ground from a baires she was removing. She felt a sharp pain in her right lower ribs. She now has continual right lower rib pain. She rates pain a 5 out of 10. Pain worsens with any movement of the torso. Associated symptoms: Deny chest pain, dyspnea, headache(s), nausea, rash, palpitations or vomiting Review of Systems Const: Denies: fever(s), chills or fatigue Eyes: Denies: change in vision or eye discomfort ENMT: Denies: throat pain, odynophagia, nasal discharge or nasal congestion Card: Denies: chest pain, palpitations, edema, swelling of feet/ankles, dyspnea on exertion or orthopnea Resp: Denies: dyspnea, productive cough or non-productive cough GI: Denies: abdominal pain, nausea, vomiting, diarrhea, constipation or hematochezia : Denies: flank pain, dysuria or hematuria Musc: Reports: other (right lower rib pain); Denies: neck pain, back pain or extremity swelling Skin/Breast: Denies: rash or new lesions Neuro: Denies: headache(s), numbness in extremities or weakness in extremities [facility] PFSH: Medical History Chain smoker Major depressive disorder, recurrent, in full remission Psychiatric care Surgical History History of sleeve gastrectomy Family History Other CAD (coronary artery disease) Cancer Diabetes Hypertension Denies family history of Anesthesia complication Bleeding disorder Stroke Social History Smoking and tobacco status: light tobacco smoker Quit status (tobacco): has quit using tobacco Year quit tobacco: 2014 Second hand smoke exposure: No Alcohol intake: never Adopted: No Caregiver/support person: Yes Lives independently: Yes Household members: spouse Housing: House Marital status: service: No Current occupational status: disabled Current occupational exposures/hazards: No Pets and animals: No History of recent travel: No Sexually active: Yes Current gender identity: Female Giana/Buddhist: Congregation Special giana needs: No Agree to transfusion: No Financial difficulty paying for basics: Decline to Answer Physical Exam Const: COMMON NORMALS: patient oriented x3 HENMT: COMMON NORMALS: normocephalic HEAD & SCALP: normocephalic MOUTH: Normal oral and palatal mucosa present THROAT: posterior oropharynx normal and uvula midline Neck/C-Spine: COMMON NORMALS: supple GENERAL: Yes normal visual inspection Chest: CHEST: Yes tenderness rib right anterior-axillary line involving the 9th rib, involving the 10th rib and involving the 11th rib Resp: COMMON NORMALS: normal respiratory effort, No retractions, No use of accessory muscles and clear to auscultation bilaterally AUSCULTATION: clear to auscultation bilaterally Cardio: COMMON NORMALS: regular rate, regular rhythm, S1 normal heart sound present, S2 normal heart sound present, No gallops present (Cardio), No clicks present (Cardio), No murmurs present (Cardio) and Peripheral pulses 2+ throughout RATE: regular rate RHYTHM: regular rhythm HEART SOUNDS: S1 normal heart sound present and S2 normal heart sound present PERIPHERAL PULSES: Peripheral pulses 2+ throughout GI: COMMON NORMALS: Normal to inspection, nondistended, normoactive bowel sounds present, Soft to palpation, non-tender and no masses PALPATION: Yes Soft to palpation : COMMON NORMALS: Yes no CVA tenderness BLADDER/KIDNEY EXAM: Yes no CVA tenderness Back/Pelvis: COMMON NORMALS: no CVA tenderness Extremity: COMMON NORMALS: normal to inspection Neuro: COMMON NORMALS: patient oriented x3 and moves all extremities Skin: GENERAL SKIN EXAM: dry skin Course Vital Signs: Vital signs: Vital Signs Temperature 98.8 F 10/04/21 16:58 Pulse Rate 70 10/04/21 16:58 Respiratory Rate 18 10/04/21 16:58 Blood Pressure 145/93 10/04/21 16:58 Pulse Oximetry 98 10/04/21 16:58 [facility] - General Adult Medical Decision Making Patient is a 51-year-old female comes to the ED with right lower rib pain after working in yard. Patient says she was pulling up a root from her landscape and felt a pain in her right lower rib. Denies any fall or injury or trauma to cause the pain. Vitals are stable. Patient has some right rib palpable tenderness but rest of exam is benign. Right rib x-ray showed no acute findings. Patient was diagnosed with right rib pain was stable for discharge home. She was home with a prescription for a muscle relaxer and told to take [id number] Tylenol for pain. Follow-up with PCP in the next week for reevaluation. Return to ED precautions given. Patient stood agree with plan. Lab Data Radiology Impressions Ribs X-Ray 10/04/21 17:33 IMPRESSION: No acute abnormality demonstrated. Discharge Plan Discharge Patient Disposition: Home Clinical Impression: Rib pain on right side Condition: Stable Prescriptions: New cyclobenzaprine 7.5 mg tablet 7.5 mg PO BID PRN (Reason: muscle spasm) Qty: 30 0RF No Action famotidine [Pepcid] 20 mg tablet 10 mg PO BID 0RF cetirizine [All Day Allergy (cetirizine)] 10 mg tablet 10 mg PO DAILY 0RF sertraline [Zoloft] 100 mg tablet 100 mg PO DAILY Qty: 30 11RF montelukast [Singulair] 10 mg tablet 10 mg PO DAILY Qty: 30 11RF hydroxyzine HCl 25 mg tablet 25 mg PO QID PRN (Reason: anxiety) Qty: 60 5RF cyanocobalamin (vitamin B-12) 1,000 mcg/mL solution See Rx Instructions .ROUTE .COMPLEX Qty: 10 0RF Dose Instruction: INJECT ONE (1) ML INTRAMUSCULARLY ONCE DAILY FOR 3 DAYS THEN ONCE WEEKLY FOR 4 WEEKS THEN ONCE PER MONTH Rx Instructions: INJECT ONE (1) ML INTRAMUSCULARLY ONCE DAILY FOR 3 DAYS THEN ONCE WEEKLY FOR 4 WEEKS THEN ONCE PER MONTH ascorbic acid (vitamin C) [Vitamin C] 500 mg Tablet 500 mg PO DAILY 0RF ropinirole 0.25 mg Tablet 0.25 mg PO BID 0RF tramadol 50 mg tablet 50 mg PO Q6H PRN (Reason: pain) Qty: 14 0RF Discharge Orders: Discharge ED (Routine); Ordered 10/04/21 Ordered By: John Mcgarry Referrals: Gisell Jha NP [Primary Care Provider] - Discharge Diet: Regular Discharge Activity: Increase activity as tolerated Activity Restrictions/Additional Instructions: Follow-up with medical provider as directed in the next 5 to 7 days for reevaluation. Take medications as prescribed. return to the ER or your medical provider if condition worsens. Please read and understand discharge instructions. Thank you for choosing [facility] for your healthcare needs today. Please realize this is an emergency room and that we are providing you with a medical screening exam and this may not be complete and all inclusive of all the testing and or work up that you may need to determine your ailment or severity of your illness. It is very important that you follow up as instructed or that you return to the Emergency Department should you have concerns or if your condition changes or worsens in any way. Coding Level of Care Code ED Locket Maker for Jerry Fwd Exam Comprehensive
[2021-10-04] MEDS: orphenadrine 30 mg/mL Inj 2 mL 60 MG IM (18:00)
[2021-10-04] MEDS: ketorolac 60 mg/2 mL INJ IM (18:00)
== END 2021-10-04 19:58 | disposition home or self-care (01) ==
PROVIDERS: Emergency Provider Physician Assistant; PCP Nurse Practitioner Family
DX: R07.81 Pleurodynia (principal); F17.210 Nicotine dependence, cigarettes, uncomplicated
CPT/HCPCS: 71101; 96372; 99284; J1885; J2360

== ENCOUNTER → 2021-10-16 09:44 | Outpatient (BNVA) | payer MEDICAID, SELFPAY | PROVIDERS: PCP Nurse Practitioner Family; Visit Provider Nurse Practitioner Family | DX: R53.83 Other fatigue (principal) | CPT/HCPCS: 85025; 85651 ==

== ENCOUNTER → 2021-10-22 12:10 | Outpatient (BNVA) | payer MEDICAID, SELFPAY | PROVIDERS: PCP Nurse Practitioner Family; Visit Provider Specialist | DX: G62.9 Polyneuropathy, unspecified (principal); E53.8 Deficiency of other specified B group vitamins; M79.7 Fibromyalgia | CPT/HCPCS: 99213 ==

== ENCOUNTER → 2021-11-21 08:09 | Outpatient (BNVA) | payer MEDICAID, SELFPAY | PROVIDERS: PCP Nurse Practitioner Family; Visit Provider Nurse Practitioner Family | DX: E78.00 Pure hypercholesterolemia, unspecified (principal) | CPT/HCPCS: 80053; 80061 ==

== ENCOUNTER → 2021-11-28 09:21 | Outpatient (BNVA) | payer MEDICAID, SELFPAY | PROVIDERS: PCP Nurse Practitioner Family; Visit Provider Specialist | DX: M17.0 Bilateral primary osteoarthritis of knee (principal); Z71.89 Other specified counseling | CPT/HCPCS: 20610; J1100; J2795; J3301 ==

== ENCOUNTER → 2021-12-19 08:08 | Outpatient (BNVA) | payer MEDICAID, SELFPAY | PROVIDERS: PCP Nurse Practitioner Family; Visit Provider Internal Medicine | DX: M25.50 Pain in unspecified joint (principal); R53.83 Other fatigue; Z11.59 Encounter for screening for other viral diseases; Z98.84 Bariatric surgery status; Z91.014 Allergy to mammalian meats; E55.9 Vitamin D deficiency, unspecified; E34.9 Endocrine disorder, unspecified; E07.9 Disorder of thyroid, unspecified; E53.8 Deficiency of other specified B group vitamins; R20.0 Anesthesia of skin; R20.2 Paresthesia of skin; Z87.891 Personal history of nicotine dependence | CPT/HCPCS: 36415; 72040; 72100; 72202; 73120; 82533; 82550; 82728; 82784; 83516; 83540; 83735; 84100; 84425; 84439; 85651; 86140; 86160; 86162; 86200; 86235; 86255; 86376; 86431; 86704; 86803; 87340; 99204 ==

== ENCOUNTER 2021-12-25 12:00 | Outpatient (CLI) | payer MEDICAID, SELFPAY ==
[2021-12-25 13:04] LABS: Free T4 Free Thyroxine 1.24 ng/dL (0.82-1.77)
[2021-12-25 13:57] LABS: 25 Hydroxy Vitamin D 15 ng/mL (30-100); Follicle Stimulating Hormone 51.6 mIU/mL
[2021-12-26 15:03] LABS: Thyroglobulin AB <1 IU/mL (< or = 1)
[2021-12-26 15:34] LABS: Thyroid Peroxidase Antobodies 2 IU/mL (<9)
[2021-12-31 17:38] LABS: Estrogens Total 181.6 pg/mL
[2021-12-31 18:33] LABS: TSH Receptor Binding Antibody 1.04 IU/L (< OR = 2.00)
== END 2021-12-25 12:01 | disposition home or self-care (01) ==
LOC: LAB 12:02
PROVIDERS: PCP Nurse Practitioner Family; Visit Provider Internal Medicine
DX: E55.9 Vitamin D deficiency, unspecified (principal); E07.9 Disorder of thyroid, unspecified; E34.9 Endocrine disorder, unspecified
CPT/HCPCS: 36415; 82306; 82672; 83001; 83002; 83516; 84439; 84443; 86376; 86800

== ENCOUNTER → 2022-01-09 11:24 | Outpatient (BNVA) | payer MEDICAID, SELFPAY | PROVIDERS: PCP Nurse Practitioner Family; Visit Provider Internal Medicine | DX: M54.50 Low back pain, unspecified (principal); E63.9 Nutritional deficiency, unspecified; Z91.014 Allergy to mammalian meats | CPT/HCPCS: 99213; 99214 ==

== ENCOUNTER 2022-01-22 14:40 | Outpatient (CLI) | payer MEDICAID, SELFPAY ==
[2022-01-22 15:22] LABS: Basophils # 0.1 10^3/uL (0.0-0.1); Eosinophils # 0.1 10^3/uL (0.0-0.8); Eosinophils % 0.8 %; Hemoglobin 13.6 g/dL (11.5-15.3); Lymphocytes # 3.1 10^3/uL (0.8-4.8); Lymphocytes % 34.4 %; Mean Corpuscular HGB Conc 32.4 g/dL (30.0-36.0); Mean Corpuscular Hemoglobin 30.6 pg (28.0-34.0); Mean Corpuscular Volume 94.4 fl (81-99); Mean Platelet Volume 9.2 fL (7.4-10.4); Monocytes # 0.5 10^3/uL (0.2-0.9); Monocytes % 5.8 %; Neutrophils # 5.26 10^3/uL (1.8-7.7); Neutrophils % 57.7 %; Nucleated Red Blood Cells % 0 %; Platelet Count 316 10^3/cmm (130-400); Red Blood Count 4.45 10^6/uL (4.1-5.3); Red Cell Distribution Width 12.5 % (12.1-15.1); White Blood Count 9.1 10^3/uL (4.0-10.0)
[2022-01-22 15:51] LABS: Calcium 9.1 mg/dL (8.5-10.5)
[2022-01-22 15:57] LABS: Parathyroid Hormone 67.3 pg/mL (15-65)
[2022-01-22 15:58] LABS: Alanine Aminotransferase 11 U/L (0-33); Alkaline Phosphatase 79 U/L (35-105); Aspartate Amino Transferase 16 U/L (0-32); Blood Urea Nitrogen 14 mg/dL (6-20); Calcium 9.2 mg/dL (8.5-10.5); Carbon Dioxide 26 mmol/L (22-29); Chloride 105 mmol/L (98-107); Chol HDL Ratio 4.04 mg/dL (0.0-4.40); Cholesterol 218 mg/dL (0-200); Globulin 2.6 g/dL (1.3-4.6); Glucose 78 mg/dL (65-115); HDL Cholesterol 54 mg/dL (60-100); LDL Cholesterol Calculated 144 mg/dL (50-129); LDL HDL Ratio 2.67 RATIO (0.00-3.22); Magnesium 2.3 mg/dL (1.7-2.3); Osmolality Calculated 289 mOsm/kg (285-295); Sodium 140 mmol/L (136-145); Thyroid Stimulating Hormone 0.99 uIU/mL (0.27-4.20); Total Bilirubin 0.4 mg/dL (0.15-1.2); Total Protein 6.6 g/dL (6.6-8.7); Triglycerides 102 mg/dL (0-150)
[2022-01-22 16:19] LABS: Ferritin 133 ng/mL (15-150); Iron 124 ug/dL (37-145); Percent Saturation 39.2 % (20-50); Total Iron Binding Capacity 316 mcg/dl; Unsaturated Iron Binding 192 ug/dL (112-347)
[2022-01-22 16:32] LABS: Vitamin B12 596 pg/mL (232-1245)
[2022-01-25 16:37] LABS: Zinc Level, Serum or Plasma 60 mcg/dL (60-130)
[2022-01-27 14:17] LABS: Vit D 1,25 (Oh)2, Total 16 pg/mL (18-72); Vit D2 1,25 (Oh)2 <8 pg/mL; Vit D3 1,25 (Oh)2 16 pg/mL
[2022-01-28 14:48] LABS: Vitamin B1(Thiamin) Plas/Ser 11 nmol/L (8-30)
== END 2022-01-22 14:41 | disposition home or self-care (01) ==
LOC: LAB 14:43
PROVIDERS: PCP Nurse Practitioner Family; Visit Provider Surgery
DX: Z98.84 Bariatric surgery status (principal); Z90.3 Acquired absence of stomach [part of]
CPT/HCPCS: 36415; 80053; 80061; 82310; 82607; 82652; 82728; 82746; 83540; 83550; 83735; 83970; 84425; 84443; 84630; 85025

== ENCOUNTER → 2022-01-29 09:26 | Outpatient (BNVA) | payer MEDICAID, SELFPAY | PROVIDERS: PCP Nurse Practitioner Family; Visit Provider Anesthesiology Pain Medicine | DX: Z98.84 Bariatric surgery status (principal); Z90.3 Acquired absence of stomach [part of]; G89.29 Other chronic pain; M50.90 Cervical disc disorder, unspecified, unspecified cervical region; M47.816 Spondylosis without myelopathy or radiculopathy, lumbar region; M51.16 Intervertebral disc disorders with radiculopathy, lumbar region; M79.604 Pain in right leg; M79.605 Pain in left leg; Z87.891 Personal history of nicotine dependence | CPT/HCPCS: 99204; 99213 ==

== ENCOUNTER 2022-03-06 08:29 | Outpatient (CLI) | payer MEDICAID, SELFPAY ==
--- NOTE | 2022-03-06 08:45 | MR_ITS ---
WS: [id number] MRI CERVICAL SPINE NONCONTRAST HISTORY: M54.2 - Cervicalgia, bilateral arm pain and finger numbness. COMPARISON: None available. Technique: Multiplanar, multisequence noncontrast imaging of the cervical spine. Normal cervical alignment with no compression fracture or significant disc space narrowing. Signal within the cervical cord is normal. Visualized posterior fossa is unremarkable. Craniocervical junction, C1 and C2 relationship, odontoid process and soft tissues are normal. C2-C3: Normal. C3-C4: Normal. C4-C5: Normal. C5-C6: Normal. C6-C7: Mild facet joint arthritis. No stenosis. C7-T1: Normal. Paraspinal soft tissue are normal. MR/MR cervical spin wo con* [id number] IMPRESSION: 1. No significant central or foraminal stenosis. No disc protrusions. 2. Mild facet joint arthritis at C6-7.
--- NOTE | 2022-03-06 09:30 | MR_ITS ---
WS: [id number] MRI LUMBAR SPINE NONCONTRAST HISTORY: M54.9 - Dorsalgia, unspecified COMPARISON: 02/10/2013 TECHNIQUE: Sagittal and axial multisequence imaging is submitted. Mild increase in thoracic kyphosis. No cord compression. Normal lumbar alignment with no compression fractures or marrow edema. Mild disc desiccation throughout the lumbar spine. Conus terminates normally at L1-2 disc level. L1-L2: Mild bilateral facet joint arthritis. No stenosis or disc protrusion. L2-L3: Mild annular disc bulging and central disc protrusion. Mild ligamentum flavum and facet arthri tis. No stenosis. L3-L4: Mild annular disc bulging with ligamentum flavum and facet arthritis. Mild encroachment into t he subarticular recesses. Very mild LEFT foraminal narrowing. L4-L5: Mild disc bulging with central disc protrusion contacting the ventral thecal sac. Ligamentum f lavum and facet arthritis. Mild central, bilateral subarticular recess and foraminal stenosis. Centra l disc protrusion has slightly increased in size since the prior study. L5-S1: Mild disc bulging. Moderate ligamentum flavum and facet arthritis. Severe bilateral foraminal stenosis, LEFT greater than RIGHT. Foraminal stenosis has progressed since 2012. Very mild dilatation of the RIGHT renal pelvis and proximal ureter. Loss of the normal contour of the mid RIGHT ureter at the L4 level. A stone or soft tissue nodule within the ureter should be consider ed clinically. This represents a change since 2012. Metal clips are noted within the retroperitoneum on a prior CT from 2018 which may be causing distortion and the change in appearance of the ureter. MR/MR lumbar spine wo con* [id number] IMPRESSION: 1. Severe bilateral foraminal stenosis at L5-S1 has progressed since 2012. 2. Mild central, bilateral subarticular recess and foraminal stenosis at L4-5. Central disc protrusion has slightly increased in size since the prior study. Mild central stenosis has also increased. 3. Mild bilateral subarticular recess encroachment at L3-4 and mild LEFT polo inal narrowing. 4. Very slight dilatation of the RIGHT renal pelvis and proximal ureter. Loss of the normal configuration of the ureter at the L4 level. There are surgical c lips in the retroperitoneum noted on the CT from 2018. Suggest noncontrast CT a bdomen and pelvis evaluation to evaluate the ureter.
== END 2022-03-06 08:30 | disposition home or self-care (01) ==
LOC: RAD 08:31
PROVIDERS: PCP Nurse Practitioner Family; Visit Provider Anesthesiology Pain Medicine
DX: M48.07 Spinal stenosis, lumbosacral region (principal); M48.061 Spinal stenosis, lumbar region without neurogenic claudication; M47.812 Spondylosis without myelopathy or radiculopathy, cervical region
CPT/HCPCS: 20610; 72141; 72148; J1100; J2795; J3301

== ENCOUNTER → 2022-03-26 09:42 | Outpatient (BNVA) | payer MEDICAID, SELFPAY | PROVIDERS: PCP Nurse Practitioner Family; Visit Provider Anesthesiology Pain Medicine | DX: Z09 Encounter for follow-up examination after completed treatment for conditions other than malignant neoplasm (principal); G89.29 Other chronic pain; M50.90 Cervical disc disorder, unspecified, unspecified cervical region; M47.816 Spondylosis without myelopathy or radiculopathy, lumbar region; M51.16 Intervertebral disc disorders with radiculopathy, lumbar region | CPT/HCPCS: 99215 ==

== ENCOUNTER → 2022-05-20 10:57 | Outpatient (BNVA) | payer MEDICAID, SELFPAY | PROVIDERS: PCP Nurse Practitioner Family; Visit Provider Anesthesiology Pain Medicine | DX: Z09 Encounter for follow-up examination after completed treatment for conditions other than malignant neoplasm (principal); G89.29 Other chronic pain; M50.90 Cervical disc disorder, unspecified, unspecified cervical region; M47.816 Spondylosis without myelopathy or radiculopathy, lumbar region; M51.16 Intervertebral disc disorders with radiculopathy, lumbar region; M79.18 Myalgia, other site | CPT/HCPCS: 20553; 99214 ==

== ENCOUNTER → 2022-06-09 13:00 | Outpatient (BNVA) | payer MEDICAID, SELFPAY | PROVIDERS: PCP Nurse Practitioner Family; Visit Provider Anesthesiology Pain Medicine | DX: G89.29 Other chronic pain (principal); M54.16 Radiculopathy, lumbar region | CPT/HCPCS: 64493; 64494; 64495; J3490 ==

== ENCOUNTER → 2022-06-12 09:48 | Outpatient (BNVA) | payer MEDICAID, SELFPAY | PROVIDERS: PCP Nurse Practitioner Family; Visit Provider Specialist | DX: M17.0 Bilateral primary osteoarthritis of knee (principal); Z71.89 Other specified counseling | CPT/HCPCS: 20610; J1100; J2795; J3301 ==

== ENCOUNTER → 2022-06-23 12:48 | Outpatient (BNVA) | payer MEDICAID, SELFPAY | PROVIDERS: PCP Nurse Practitioner Family; Visit Provider Anesthesiology Pain Medicine | DX: G89.29 Other chronic pain (principal); M47.816 Spondylosis without myelopathy or radiculopathy, lumbar region | CPT/HCPCS: 64493; 64494; 64495; J3490 ==

== ENCOUNTER → 2022-07-09 09:21 | Outpatient (BNVA) | payer MEDICAID, SELFPAY | PROVIDERS: PCP Nurse Practitioner Family; Visit Provider Anesthesiology Pain Medicine | DX: Z09 Encounter for follow-up examination after completed treatment for conditions other than malignant neoplasm (principal); G89.29 Other chronic pain; M50.90 Cervical disc disorder, unspecified, unspecified cervical region; M47.816 Spondylosis without myelopathy or radiculopathy, lumbar region; M51.16 Intervertebral disc disorders with radiculopathy, lumbar region | CPT/HCPCS: 99214 ==

== ENCOUNTER → 2022-07-23 14:20 | Outpatient (BNVA) | payer MEDICAID, SELFPAY | PROVIDERS: PCP Nurse Practitioner Family; Visit Provider Anesthesiology Pain Medicine | DX: G89.29 Other chronic pain (principal); M47.816 Spondylosis without myelopathy or radiculopathy, lumbar region | CPT/HCPCS: 64635; 64636; J1030 ==

== ENCOUNTER → 2022-08-04 14:19 | Outpatient (BNVA) | payer MEDICAID, SELFPAY | PROVIDERS: PCP Nurse Practitioner Family; Visit Provider Anesthesiology Pain Medicine | DX: G89.29 Other chronic pain (principal); M47.816 Spondylosis without myelopathy or radiculopathy, lumbar region | CPT/HCPCS: 64635; 64636; J1030 ==

== ENCOUNTER → 2022-08-25 10:43 | Outpatient (BNVA) | payer MEDICAID, SELFPAY | PROVIDERS: PCP Nurse Practitioner Family; Visit Provider Anesthesiology Pain Medicine | DX: Z09 Encounter for follow-up examination after completed treatment for conditions other than malignant neoplasm (principal); G89.29 Other chronic pain; M50.90 Cervical disc disorder, unspecified, unspecified cervical region; M47.816 Spondylosis without myelopathy or radiculopathy, lumbar region; M51.16 Intervertebral disc disorders with radiculopathy, lumbar region | CPT/HCPCS: 99214 ==

== ENCOUNTER → 2022-09-18 10:28 | Outpatient (BNVA) | payer MEDICAID, SELFPAY | PROVIDERS: PCP Nurse Practitioner Family; Visit Provider Specialist | DX: M17.0 Bilateral primary osteoarthritis of knee (principal) | CPT/HCPCS: 20610; J1100; J2795; J3301 ==

== ENCOUNTER → 2022-10-21 10:37 | Outpatient (BNVA) | payer MEDICAID, SELFPAY | PROVIDERS: PCP Nurse Practitioner Family; Visit Provider Specialist | DX: E53.8 Deficiency of other specified B group vitamins (principal); G62.9 Polyneuropathy, unspecified; M51.16 Intervertebral disc disorders with radiculopathy, lumbar region | CPT/HCPCS: 99213 ==

== ENCOUNTER → 2022-12-25 09:44 | Outpatient (BNVA) | payer MEDICAID, SELFPAY | PROVIDERS: PCP Nurse Practitioner Family; Visit Provider Specialist | DX: M17.0 Bilateral primary osteoarthritis of knee (principal) | CPT/HCPCS: 20610; J1100; J2795; J3301 ==

== ENCOUNTER → 2023-04-16 09:25 | Outpatient (BNVA) | payer MEDICAID, SELFPAY | PROVIDERS: PCP Nurse Practitioner Family; Visit Provider Specialist | DX: M17.0 Bilateral primary osteoarthritis of knee (principal) | CPT/HCPCS: 20610; J1100; J2795; J3301 ==

== ENCOUNTER → 2023-07-06 15:23 | Outpatient (BNVA) | payer MEDICAID, SELFPAY | PROVIDERS: PCP Nurse Practitioner Family; Visit Provider Nurse Practitioner Family | DX: Z98.84 Bariatric surgery status (principal); E53.8 Deficiency of other specified B group vitamins; E63.9 Nutritional deficiency, unspecified | CPT/HCPCS: 80053; 82306; 82607; 84630; 85025 ==

== ENCOUNTER → 2023-07-31 10:09 | Outpatient (BNVA) | payer MEDICAID, SELFPAY | PROVIDERS: PCP Nurse Practitioner Family; Visit Provider Specialist | DX: M17.0 Bilateral primary osteoarthritis of knee (principal); Z71.89 Other specified counseling | CPT/HCPCS: 20610; J1100; J2795; J3301 ==

== ENCOUNTER → 2023-10-21 07:36 | Outpatient (BNVA) | payer MEDICAID, SELFPAY | PROVIDERS: PCP Nurse Practitioner Family; Visit Provider Specialist | DX: I65.29 Occlusion and stenosis of unspecified carotid artery (principal); M51.16 Intervertebral disc disorders with radiculopathy, lumbar region; E53.8 Deficiency of other specified B group vitamins; G62.9 Polyneuropathy, unspecified | CPT/HCPCS: 99214 ==

== ENCOUNTER 2023-10-30 11:02 | Outpatient (CLI) | payer MEDICAID, SELFPAY ==
--- NOTE | 2023-10-30 11:15 | USCV_ITS ---
Emerald Khalil Age: 53 Gender: F : 1970 Exam Date: 10/30/2023 11:11 Ordering Phys: Aide Barrera MD Technologist: DAMIR Exam Location: [facility] [place] Indication: Stenosis Risk Factors: Previous Vascular Surgery: Right Brachial BP: / Left Brachial BP: / Right Left Velocity (cm/s) Spectral Plaque Velocity (cm/s) Spectral Plaque Syst/Diast Broadening Syst/Diast Broadening 99.60/ 32.30 Prox CCA 114.30/ 32.10 125.80/38.10 Mid CCA 126.10/ 39.50 97.00/ 31.80 Distal CCA 106.20/ 34.10 49.60/ 21.60 Prox ICA 67.20 / 30.70 78.80/ 38.70 Mid ICA 65.80 / 33.60 74.40/ 31.80 Distal ICA 54.10 / 22.30 59.20 ECA 86.40 0.80 ICA/CCA 0.60 Antegrade Vertebral Antegrade 56.40/ 18.70 cm/s 52.80/ 22.30 cm/s Tri Subclavian Tri 83.50 78.60 FINDINGS Comparison:. 05/17/21 No significant elevation of systolic or diastolic velocities. Waveforms are normal. Mild carotid atherosclerosis, similar to the prior exam. Antegrade vertebral arteries. CONCLUSIONS Bilateral ICA stenosis less than 50%. No interval change in stenosis since prior exam. Dr. Courtney Stone DO (Electronically Signed) Final Date: 30 October 2023 11:42 S
== END 2023-10-30 11:03 | disposition home or self-care (01) ==
LOC: RAD 11:03
PROVIDERS: PCP Nurse Practitioner Family; Visit Provider Specialist
DX: I65.23 Occlusion and stenosis of bilateral carotid arteries (principal)
CPT/HCPCS: 93880

== ENCOUNTER → 2023-11-11 08:43 | Outpatient (BNVA) | payer MEDICAID, SELFPAY | PROVIDERS: PCP Nurse Practitioner Family; Visit Provider Specialist | DX: M17.0 Bilateral primary osteoarthritis of knee (principal) | CPT/HCPCS: 20610; J1100; J2795; J3301 ==

== ENCOUNTER → 2024-02-19 09:25 | Outpatient (BNVA) | payer MEDICAID, SELFPAY | PROVIDERS: PCP Nurse Practitioner Family; Visit Provider Specialist | DX: M17.0 Bilateral primary osteoarthritis of knee (principal) | CPT/HCPCS: 20610; J1100; J2795; J3301 ==

== ENCOUNTER 2024-05-19 15:40 | Emergency (ER) | payer MEDICAID, SELFPAY ==
[2024-05-19 15:44] VITALS: BP 89/66; PULSE 89; RESP 20; TEMP 36.9; O2SAT 96
[2024-05-19 17:03] LABS: Influenza A POSITIVE (Negative); Influenza B NEGATIVE (Negative); Respiratory Syncytial Virus Ce NEGATIVE (Negative); SARS-CoV-2 PCR NEGATIVE (Negative)
--- NOTE | 2024-05-19 19:01 | CTR_ITS ---
PROCEDURE INFORMATION: Exam: CT Cervical Spine Without Contrast Exam date and time: 05/19/2024 7:22 PM Age: 53 years old Clinical indication: Injury or trauma; Fall; Blunt trauma; Additional info: Syncope, fall, neck pain TECHNIQUE: Imaging protocol: Computed tomography of the cervical spine without contrast. Axial, coronal and sagittal reformatted images were created and reviewed. Radiation optimization: All CT scans at this facility use at least one of these dose optimization techniques: automated exposure control; mA and/or kV adjustment per patient size (includes targeted exams where dose is matched to clinical indication); or iterative reconstruction. COMPARISON: MR cervical spin wo con* [id number] 03/06/2022 9:14 AM RADIATION DOSE METRICS: Total DLP (mGy-cm): 162 FINDINGS: Bones: Osteopenia. Straightening of the normal cervical lordosis. No CT evidence of acute fracture, dislocation or subluxation. Alignment anatomic. Vertebral body heights maintained. Mild multilevel spondylosis without significant spinal canal or neural foraminal stenosis. Lungs: Lung apices are normal. Soft tissues: Grossly unremarkable. CT/CT cervical spin wo con* [id number] IMPRESSION: 1. No CT evidence of acute cervical spine traumatic injury. 2. Additional findings, as above.
--- NOTE | 2024-05-19 19:01 | ECG_ITS ---
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
--- NOTE | 2024-05-19 19:01 | CTR_ITS ---
PROCEDURE INFORMATION: Exam: CT Head Without Contrast Exam date and time: 05/19/2024 7:22 PM Age: 53 years old Clinical indication: Injury or trauma; Fall; Blunt trauma (contusions or hematomas); Additional info: Syncope, head injury with + loc TECHNIQUE: Imaging protocol: Computed tomography of the head without contrast. Axial, coronal and sagittal reformatted images were created and reviewed. Radiation optimization: All CT scans at this facility use at least one of these dose optimization techniques: automated exposure control; mA and/or kV adjustment per patient size (includes targeted exams where dose is matched to clinical indication); or iterative reconstruction. COMPARISON: MR head wo con* [id number] 05/17/2021 12:25 PM RADIATION DOSE METRICS: Total DLP (mGy-cm): 1074.2 FINDINGS: Brain: No CT evidence of acute intracranial hemorrhage or acute territorial infarction. No significant mass effect or midline shift. Basal cisterns patent. Cerebral ventricles: Normal in size and configuration. Paranasal sinuses: Minimal ethmoid and maxillary sinus mucosal thickening. No air-fluid levels. Mastoid air cells: Grossly unremarkable. Bones: Unremarkable. No acute fracture. Soft tissues: Grossly unremarkable. CT/CT head wo con* [id number] IMPRESSION: 1. No CT evidence of acute intracranial pathology. 2. Additional findings, as above.
--- NOTE | 2024-05-19 19:01 | XRR_ITS ---
PROCEDURE INFORMATION: Exam: XR Chest Exam date and time: 05/19/2024 7:29 PM Age: 53 years old Clinical indication: Other: Syncope; Additional info: Syncope and collapse TECHNIQUE: Imaging protocol: Radiologic exam of the chest. Views: 1 view. COMPARISON: CR XR ribs RT mn 3V w CXR1V [id number] 10/04/2021 5:40 PM FINDINGS: Lungs: Atelectatic changes in the left lung base laterally. No focal consolidation. Pleural spaces: Unremarkable. No pleural effusion. No pneumothorax. Heart/Mediastinum: Unremarkable. No cardiomegaly. Bones/joints: Unremarkable. XR/XR chest 1V portable [id number] IMPRESSION: Atelectatic changes in the left lung base laterally. No focal consolidation.
--- NOTE | 2024-05-19 19:01 | CTR_ITS ---
PROCEDURE INFORMATION: Exam: CT Maxillofacial Without Contrast Exam date and time: 05/19/2024 7:22 PM Age: 53 years old Clinical indication: Injury or trauma; Fall; Blunt trauma (contusions or hematomas); Head/scalp; Without loss of consciousness; Additional info: Fall, injury left orbit TECHNIQUE: Imaging protocol: Computed tomography of the face without contrast. Axial, coronal and sagittal reformatted images were created and reviewed. Radiation optimization: All CT scans at this facility use at least one of these dose optimization techniques: automated exposure control; mA and/or kV adjustment per patient size (includes targeted exams where dose is matched to clinical indication); or iterative reconstruction. COMPARISON: CT head wo con* [id number] 05/19/2024 7:22 PM RADIATION DOSE METRICS: Total DLP (mGy-cm): 577.2 FINDINGS: Paranasal sinuses: Minimal ethmoid and maxillary sinus mucosal thickening. No air-fluid levels. Orbital cavities: Orbits are normal. Globes are unremarkable. Bones: No acute fracture. Soft tissues: Mild left periorbital soft tissue swelling. CT/CT facial bones wo con* [id number] IMPRESSION: 1. No acute facial bone fracture. 2. Additional findings, as above.
--- NOTE | 2024-05-19 19:09 | ED_ITS ---
HPI - Syncope 2 General: Chief Complaint: Syncope Stated Complaint: flu like sympytoms Time Seen by Provider: 05/19/24 18:44 Source: patient Mode of arrival: ambulatory Limitations: no limitations History of Present Illness: Patient is a 53-year-old female that presents to the emergency department with generalized bodyaches, intermittent fevers, cough and a syncopal episode today. She has also had some diarrhea. She denies any abdominal pain or cramping at this time. She denies any chest pain or shortness of breath. She denies any wheezing. She states today when she was standing she passed out and struck her face on the floor. She does have some bruising and swelling around the left orbit and on the forehead. She states her son told her that she was knocked out for about 5 minutes. She reports some pain to the face and some neck pain. She denies any severe headache at this time. She denies any use of blood thinners other than a baby aspirin. She denies and states she has had a hysterectomy. She does report some diffuse myalgias. She presents to the emergency department for further evaluation and treatment. Patient reports she is up-to-date on her tetanus immunization. Associated symptoms: Reports chest pain and fever(s) (Intermittent, none now); Deny abdominal pain, headache(s) or nausea Related Data Home Medications ?Medication ?Instructions ?Recorded ?Confirmed famotidine 20 mg tablet (Pepcid) 10 mg PO BID 05/12/19 02/19/24 cetirizine 10 mg tablet (All Day 10 mg PO DAILY 02/19/24 Allergy (cetirizine)) ascorbic acid (vitamin C) 500 mg 500 mg PO DAILY 05/1702/19/24 tablet (Vitamin C) carboxymethylcellulose sodium 0.5 1 drp ophthalmic (ey e) BID 11/21/21 02/19/24 % eye drops epinephrine 0.3 mg/0.3 mL 0.3 mg IM Q4H PRN 01/29/22 1 04/20/23 injection, auto-injector aspirin 81 mg tablet,delayed 81 mg PO DAILY 12/24/22 1 04/20/23 release (Adult Low Dose Aspirin) hhglltbu-[id number] 45 mg-folic cap PO 10/21/23 acid 800 mcg-vit K 120 mcg capsule (Bariatric Multivitamins) omalizumab 150 mg subcutaneous 300 mg SUBCUT .[id number] 10/21/23 02/19/24 solution (Xolair) Previous Rx's ?Medication ?Instructions ?Recorded montelukast 10 mg tablet 10 mg PO DAILY #30 tabs 07/05 06/24 (Singulair) thiamine HCl (vitamin B1) 100 mg 100 mg PO DAILY #60 t abs 01/09/22 tablet cyclobenzaprine 10 mg tablet 10 mg PO TID PRN muscle s pasm #60 08/25/22 tabs hinged knee brace #1 ea 04/16/23 needle (disp) 18 G 18 gauge x 1 #12 ea 11/02/23 (BD Regular Bevel [place]) syringe with needle 3 mL 23 x 1 #12 ea 11/02/23 (BD Eclipse Luer-Lydia) cyanocobalamin (vitamin B-12) See Rx Instructions .Rou te 11/11/23 1,000 mcg/mL injection solution .COMPLEX #30 mL hydroxyzine HCl 25 mg tablet See Rx Instructions .Rout e 03/21/24 .COMPLEX #60 tabs Allergies Allergy/AdvReac Type Severity Reaction Status Date / Time amoxicillin Allergy Unknown Unknown Verified 02/19/24 09:40 Penicillins Allergy Unknown Unknown Verified 02/19/24 09:40 Alpha-Gal Allergy ALGY-Anaphy Verified 02/19/24 09:40 (Fdeilbvei-Tlumd-5,3-Gala laxis Latex, Natural Rubber Allergy hives Verified 02/19/24 09:40 Review of Systems 2 Const: Reports: fever(s) (Intermittent, none now) Eyes: Denies: change in vision or blurry vision ENMT: Reports: dry mouth, nasal discharge (Clear) and nasal congestion; Denies: throat pain or mouth pain Card: Reports: chest pain; Denies: edema Resp: Reports: non-productive cough; Denies: dyspnea or wheezing GI: Reports: diarrhea (Earlier today, none now); Denies: abdominal pain, nausea, vomiting or dysphagia : Denies: flank pain, difficulty voiding or dysuria Musc: Reports: neck pain (Mild) and muscle cramps; Denies: deformity Skin/Breast: Reports: other (Bruising to the forehead and around the left orbit) Neuro: Denies: headache(s), numbness in extremities, weakness in extremities or lack of coordination Psych: Denies: anxiety or depression Endo: Denies: polyuria or polydipsia Dion/Lymph: Denies: petechiae All/Imm: Denies: urticaria, throat swelling or tongue swelling PFSH ED 2 PFSH: Medical History Lumbago Chain smoker Major depressive disorder, recurrent, in full remission Surgical History History of sleeve gastrectomy Family History Other CAD (coronary artery disease) Cancer Diabetes Hypertension Denies family history of Anesthesia complication Bleeding disorder Stroke Social History (Updated 05/19/24 @ 19:16 by RIGO Billingsley) Smoking and tobacco/nicotine status: current every day tobacco/nicotine user Second hand smoke exposure: No Alcohol intake: never Substance/Drug Use: never Adopted: No Caregiver/support person: Yes Lives independently: Yes Household members: spouse Housing: House Marital status: service: No Current occupational status: disabled Current occupational exposures/hazards: No Pets and animals: No Sexually active: Yes Do you think of yourself as: Straight/Heterosexual Current gender identity: Female Giana/Methodist: Jew Special giana needs: No Agree to transfusion: No Physical Exam 2 Const: COMMON NORMALS: no acute distress, patient oriented x3 and alert E XAM LIMITATIONS: no altered mental status GENERAL APPEARANCE: cooperative ORIENTATION/CONSCIOUSNESS: Yes awake HENMT: COMMON NORMALS: normocephalic, external ears normal, EAC's normal, TM's normal bilaterally (No hemotympanums) and Normal external nose present HEAD & SCALP: normocephalic and contusion (Forehead and around the left lower back) FACE & SINUS: face symmetric FACE & SINUS IMAGES: 1. Tenderness and bruising 2. Mild tenderness and bruising NOSE: Normal external nose present EXTERNAL EAR: Yes external ears normal EXTERNAL AUDITORY CANAL: EAC's normal TYMPANIC MEMBRANE: TM's normal bilaterally (No hemotympanums) MOUTH: other (Mucous membranes appear sticky and mildly dry) THROAT: posterior oropharynx normal Eye: COMMON NORMALS: Equal, round and reactive pupils present, EOMs intact bilaterally and conjunctivae normal CONJUNCTIVA: Yes conjunctivae normal P UPIL: Yes Equal, round and reactive pupils present Neck/C-Spine: COMMON NORMALS: no meningeal signs CERVICAL SPINE: Yes other (Mild tenderness at the base of the skull, no crepitus or step-off noted) Resp: COMMON NORMALS: normal respiratory effort, No retractions and clear to auscultation bilaterally EFFORT & INSPECTION: Yes able to speak in complete sentences AUSCULTATION: clear to auscultation bilaterally, no crackles, no rales, no rhonchi and no wheezes Cardio: COMMON NORMALS: regular rate and regular rhythm RATE: regular rate RHYTHM: regular rhythm GI: COMMON NORMALS: Normal to inspection, nondistended, normoactive bowel sounds present, Soft to palpation and non-tender AUSCULTATION: Yes normoactive bowel sounds PALPATION: Yes Soft to palpation RECTAL EXAM: d eferred : COMMON NORMALS: Yes no CVA tenderness BLADDER/KIDNEY EXAM: Yes no CVA tenderness Back/Pelvis: COMMON NORMALS: no CVA tenderness, no thoracic nor lumbar tenderness and thoraco-lumbar ROM normal Extremity: COMMON NORMALS: normal to inspection, full ROM and no pedal edema Neuro: COMMON NORMALS: patient oriented x3, CN's II-XII intact bilaterally and moves all extremities SENSORIUM/ORIENTATION: Yes alert MENINGEAL SIGNS: Y es no meningeal signs and No nuccal rigidity CRANIAL NERVES: Yes CN normal except as noted COORDINATION/BALANCE: nwdlir-xi-geye test normal SPEECH: s peech normal SENSORY EXAM: Yes extremities MOTOR EXAM: 5/5 motor strength present throughout, Pronator motor function not present and no tremor noted C OORDINATION: peumrv-ie-npoo test normal Psych: COMMON NORMALS: mental status grossly normal ATTITUDE: Yes calm Skin: GENERAL SKIN EXAM: other (Bruising of the forehead and the left orbit) Course 2 ED course: I discussed the case with Dr. Alexander. He was agreeable to the workup I proposed. I discussed the case with Dr. Alexander again after the results are back. He agreed with the assessment and plan. Reevaluation(s): Reevaluation #1: Patient states she is feeling better and desires to go home. She was advised of the exam, lab and imaging findings. I recommended that she follow-up with her primary care provider for further evaluation and treatment. Time: 21:58 Vital Signs: Vital signs: Vital Signs Temperature 98.4 F 05/19/24 15:44 Pulse Rate 89 05/19/24 15:44 Respiratory Rate 20 H 05/19/24 15:44 Blood Pressure 89/66 05/19/24 15:44 Pulse Oximetry 96 05/19/24 15:44 MDM - Syncope Medical Decision Making Patient was advised of the exam, lab and imaging findings. The patient does not have any acute findings on the CT scan of the head, face, cervical spine or the x-ray of the chest. The patient did test positive for influenza A. She did have a syncopal episode today. I recommended that she follow-up with her primary care provider for further evaluation and treatment, rest, increase fluids and return to the emergency department with any worsening symptoms. The patient was advised to use llyb-xhr-zuyunbb Tylenol, they do make some formulations that are appropriate for someone with alpha gal to take, and return to the emergency department with any worsening symptoms. The patient expressed understanding. Differential Diagnosis Likely syncope due to orthostatic hypotension, vasovagal syncope and dehydration Lab Data I reviewed the patient's lab results. 05/19/24 19:47 05/19/24 19:47 Radiology Impressions Cervical Spine CT 05/19/24: IMPRESSION: 1. No CT evidence of acute cervical spine traumatic injury. 2. Additional findings, as above. Chest X-Ray 05/19/24: IMPRESSION: Atelectatic changes in the left lung base laterally. No focal consolidation. Face CT 05/19/24: IMPRESSION: 1. No acute facial bone fracture. 2. Additional findings, as above. Head CT 05/19/24: IMPRESSION: 1. No CT evidence of acute intracranial pathology. 2. Additional findings, as above. Laboratory Results WBC 5.88 10^3/uL (3.29-11.43) 05/19/24: RBC 4.89 10^6/uL (3.85-5.65) 05/19/24 19:47 Hgb 14.60 g/dL (11.27-16.99) 05/19/24: Hct 44.6 % (36-47) 02/13/25 19:47 MCV 91.2 fl (85-98) 05/19/24 19:47 MCH 29.9 pg (27-33) 05/19/24 19:47 MCHC 32.7 g/dL (30-55) 05/19/24 19:47 RDW 12.9 % (12.1-15.1) 05/19/24 19:47 Plt Count 192 10^3/cmm (157-399) 05/19/24 19:47 MPV 8.9 fL (7.4-10.4) 05/19/24 19:47 Neut % (Auto) 74.9 % 05/19/24 19:47 Lymph % (Auto) 13.8 % 05/19/24 19:47 [place] % (Auto) 9.5 % 05/19/24 19:47 Eos % (Auto) 0.5 % 05/19/24 19:47 Baso % (Auto) 1.0 % 05/19/24 19:47 Neut # (Auto) 4.40 10^3/uL (1.8-7.7) 05/19/24 19:47 Lymph # (Auto) 0.8 10^3/uL (0.8-4.8) 05/19/24 19:47 [place] # (Auto) 0.6 10^3/uL (0.2-0.9) 05/19/24 19:47 Eos # (Auto) 0.0 10^3/uL (0.0-0.8) 05/19/24 19:47 Baso # (Auto) 0.1 10^3/uL (0.0-0.1) 05/19/24 19:47 Nucleated RBC % (auto) 0 % 05/19/24 19:47 Nucleated RBCs # 0.0 /100WBC 05/19/24 19:47 Sodium 132 mmol/L (136-145) L 05/19/24 19:47 Potassium 4.0 mmol/L (3.5-5.1) 05/19/24 19:47 Chloride 97 mmol/L (98-107) L 05/19/24 19:47 Carbon Dioxide 20 mmol/L (22-29) L 05/19/24 19:47 Anion Gap 19.0 (5-19) 05/19/24 19:47 BUN 14 mg/dL (6-20) 05/19/24 19:47 Creatinine 0.7 mg/dL (0.5-0.9) 05/19/24 19:47 GFR Calculation 87.2 mL/min (90-130) L 05/19/24 19:47 Glucose 89 mg/dL (65-115) 05/19/24 19:47 Calculated Osmolality 274 mOsm/kg (285-295) L 05/19/24 19:47 Calcium 8.4 mg/dL (8.5-10.5) L 05/19/24 19:47 Total Bilirubin 0.3 mg/dL (0.15-1.2) 05/19/24 19: AST 33 U/L (0-32) H 05/19/24:47 ALT 27 U/L (0-33) 05/19/24 19: Alkaline Phosphatase 93 U/L (35-105) 05/19/24 19:47 Total Protein 6.7 g/dL (6.6-8.7) 05/19/24: Albumin 3.9 g/dL (3.5-5.2) 05/19/24 19:47 Globulin 2.8 g/dL (1.3-4.6) 05/19/24 19:47 Urine Color Yellow (Yellow) 05/19/24 20:35 Urine Appearance Clear (CLEAR) 05/19/24 20:35 Urine pH 5.5 (5-7) 05/19/24 20:35 Ur Specific [place] 1.005 (1.005-1.030) 05/19/24 20:35 Urine Protein Negative (Negative) 05/19/24 20:35 Urine Glucose (UA) Negative (Normal) 05/19/24 20:35 Urine Ketones 1+ (Negative) H 05/19/24 20:35 Urine Blood 2+ (Negative) A 05/19/24 20:35 Urine Nitrate Negative (Negative) 05/19/24: Urine Bilirubin Negative (Negative) 05/19/24 20:35 Urine Urobilinogen 0.2 mg/dL (Negative) 05/19/24 20:35 Ur Leukocyte Esterase Negative (Negative) 05/19/24 20:35 Urine RBC 0-2 /hpf (0-2) 05/19/24 20:35 Urine WBC 0-5 /hpf (0-5) 05/19/24 20:35 Ur Squamous Epith Cells 0-5 /hpf (0-5) 05/19/24 20:35 Amorphous Sediment Not Reportable 05/19/24 20:35 Urine Bacteria None seen /hpf (NONE) 05/19/24 20:35 Hyaline Casts 1.21 /lpf 05/19/24 20:35 Coronavirus (PCR) Negative (Negative) 05/19/24 15:58 Influenza A (PCR) Positive (Negative) 05/19/24 15:58 Influenza Type B (PCR) Negative (Negative) 05/19/24 15:58 RSV (PCR) Negative (Negative) 05/19/24 15:58 All radiology interpretation(s) finalized by discharge EKG Data EKG 1: I personally reviewed and interpreted this EKG as follows: EKG interpretation date: 05/19/24 EKG interpretation time: 20:58 Interpretation: Rate 70, sinus rhythm, normal axis, no ST elevation, depression or other signs of acute ischemia. Critical Care Time 2 Critical Care Time: Critical Care Time: No Discharge Plan Discharge Patient Disposition: Home Clinical Impression: Influenza A, Acute dehydration, Concussion with brief loss of consciousness, Contusion of head, Contusion of face, Acute neck pain, Cough, Syncope and collapse Condition: Stable Prescriptions: No Action famotidine [Pepcid] 20 mg tablet 10 mg PO BID cetirizine [All Day Allergy (cetirizine)] 10 mg tablet 10 mg PO DAILY carboxymethylcellulose sodium 0.5 % drops 1 drp ophthalmic (eye) BID thiamine HCl (vitamin B1) 100 mg tablet 100 mg PO DAILY Qty: 60 0RF Xolair 150 mg [place] 300 mg SUBCUT .[id number] Bariatric Multivitamins 45 mg iron- 800 mcg-120 mcg capsule PO (DME) hinged knee brace See Rx Instructions .Route .MEDSUPPLY Qty: 1 0RF Rx Instructions: As directed epinephrine 0.3 mg/0.3 mL auto-injector 0.3 mg IM Q4H PRN methylprednisolone acetate [Depo-Medrol] 40 mg/mL suspension 40 mg Infiltration ONCE Qty: 1 0RF bupivacaine (PF) 0.25 % (2.5 mg/mL) solution 1 ml Infiltration ONCE Qty: 1 0RF cyclobenzaprine 10 mg tablet 10 mg PO TID PRN (Reason: muscle spasm) Qty: 60 0RF aspirin [Adult Low Dose Aspirin] 81 mg tablet,delayed release (DR/EC) 81 mg PO DAILY montelukast [Singulair] 10 mg tablet 10 mg PO DAILY Qty: 30 11RF (DME) BD Eclipse Luer-Lydia 3 mL 23 x 1 syringe See Rx Instructions .Route Qty: 12 0RF Rx Instructions: As directed (DME) needle (disp) 18 G [BD Regular Bevel [place]] 18 gauge x 1 needle See Rx Instructions .Route Qty: 12 0RF Rx Instructions: As directed cyanocobalamin (vitamin B-12) 1,000 mcg/mL solution See Rx Instructions .ROUTE .COMPLEX Qty: 30 3RF Dose Instruction: INJECT ONE ML DIRECTED ONCE MONTHLY Rx Instructions: INJECT ONE ML DIRECTED ONCE MONTHLY hydroxyzine HCl 25 mg tablet See Rx Instructions .ROUTE .COMPLEX Qty: 60 2RF Dose Instruction: TAKE ONE TABLET BY MOUTH 4 TIMES DAILY NEEDED FOR ANXIETY Rx Instructions: TAKE ONE TABLET BY MOUTH 4 TIMES DAILY NEEDED FOR ANXIETY ascorbic acid (vitamin C) [Vitamin C] 500 mg Tablet 500 mg PO DAILY Discharge Orders: Discharge ED (Routine); Ordered 05/19/24 Ordered By: Virgilio Encarnacion Referrals: Gisell Jha NP [Primary Care Provider] - Discharge Diet: Usual diet Discharge Activity: Resume usual activity Patient Instructions: Opioid Safety, Pain Management, Influenza (ED), Syncope (ED), Concussion (ED), Dehydration (ED) Activity Restrictions/Additional Instructions: Take [id number] Tylenol that is approved for use by somebody that has alpha gal as directed for fever. Rest, increase fluids. Follow-up with your doctor for recheck in 1 week. Avoid activities that make your headache worse such as reading, doing puzzles, watching TV etc. See the attached information on concussion and influenza and follow those directions. Return to the emergency department with any worsening symptoms. Print Language: [place] Coding Level of Care Code ED Marketing Area Manager for Jerry Reyes
[2024-05-19] MEDS: sodium chloride 0.9% 1,000 ML 999 ML IV (20:00)
[2024-05-19 20:07] LABS: Basophils # 0.1 10^3/uL (0.0-0.1); Eosinophils % 0.5 %; Hematocrit 44.6 % (36-47); Lymphocytes # 0.8 10^3/uL (0.8-4.8); Lymphocytes % 13.8 %; Mean Corpuscular HGB Conc 32.7 g/dL (30-55); Mean Corpuscular Hemoglobin 29.9 pg (27-33); Mean Corpuscular Volume 91.2 fl (85-98); Mean Platelet Volume 8.9 fL (7.4-10.4); Monocytes # 0.6 10^3/uL (0.2-0.9); Monocytes % 9.5 %; Neutrophils % 74.9 %; Nucleated Red Blood Cells % 0 %; Platelet Count 192 10^3/cmm (157-399); Red Blood Count 4.89 10^6/uL (3.85-5.65); Red Cell Distribution Width 12.9 % (12.1-15.1); White Blood Count 5.88 10^3/uL (3.29-11.43)
[2024-05-19 20:29] LABS: Alanine Aminotransferase 27 U/L (0-33); Albumin Level 3.9 g/dL (3.5-5.2); Alkaline Phosphatase 93 U/L (35-105); Aspartate Amino Transferase 33 U/L (0-32); Blood Urea Nitrogen 14 mg/dL (6-20); Calcium 8.4 mg/dL (8.5-10.5); Carbon Dioxide 20 mmol/L (22-29); Chloride 97 mmol/L (98-107); Globulin 2.8 g/dL (1.3-4.6); Glomerular Filtration Rate 87.2 mL/min (90-130); Glucose 89 mg/dL (65-115); Osmolality Calculated 274 mOsm/kg (285-295); Sodium 132 mmol/L (136-145); Total Bilirubin 0.3 mg/dL (0.15-1.2); Total Protein 6.7 g/dL (6.6-8.7)
[2024-05-19 20:41] LABS: Bilirubin Urine Negative (Negative); Blood Urine 2+ (Negative); Glucose Urine UA Negative (Normal); Ketones Urine 1+ (Negative); Leukocyte Esterase Urine Negative (Negative); Nitrate Urine Negative (Negative); Protein Urine Negative (Negative); Specific Gravity, Urine 1.005 (1.005-1.030); Urine Appearance Clear (CLEAR); Urine Color Yellow (Yellow); Urobilinogen Urine 0.2 mg/dL (Negative); pH Urine 5.5 (5-7)
[2024-05-19 20:43] LABS: Add Urine Microscopic? YES; Bacteria Urine None Seen /hpf; Hyaline Casts Urine 1.21 /lpf; RBC Urine 0-2 /hpf (0-2); Squamous Epithelial Cell Urine 0-5 /hpf (0-5); WBC Urine 0-5 /hpf (0-5)
[2024-05-19 22:21] VITALS: BP 156/72; PULSE 72; RESP 18; O2SAT 98
== END 2024-05-19 22:22 | disposition home or self-care (01) ==
PROVIDERS: Emergency Medicine; Emergency Provider Physician Assistant; PCP Nurse Practitioner Family
DX: J10.1 Influenza due to other identified influenza virus with other respiratory manifestations (principal); E86.0 Dehydration; S06.0X1A Concussion with loss of consciousness of 30 minutes or less, initial encounter; S00.93XA Contusion of unspecified part of head, initial encounter; S00.83XA Contusion of other part of head, initial encounter; M54.2 Cervicalgia; R55 Syncope and collapse; Z11.52 Encounter for screening for COVID-19; Z72.0 Tobacco use; W19.XXXA Unspecified fall, initial encounter
CPT/HCPCS: 12345; 70450; 70486; 71045; 72125; 80053; 81001; 85025; 87637; 93005; 96360; 96361; 99285; J7030

== ENCOUNTER → 2024-06-03 09:55 | Outpatient (BNVA) | payer MEDICAID, SELFPAY | PROVIDERS: PCP Nurse Practitioner Family; Visit Provider Specialist | DX: M17.0 Bilateral primary osteoarthritis of knee (principal) | CPT/HCPCS: 20610; J1100; J2795; J3301 ==

== ENCOUNTER → 2024-09-02 10:13 | Outpatient (BNVA) | payer MEDICAID, SELFPAY | PROVIDERS: PCP Nurse Practitioner Family; Visit Provider Specialist | DX: M17.0 Bilateral primary osteoarthritis of knee (principal) | CPT/HCPCS: 20610; J1100; J2795; J3301; J9999 ==

== ENCOUNTER → 2024-10-17 11:47 | Outpatient (BNVA) | payer MEDICAID, SELFPAY | PROVIDERS: PCP Nurse Practitioner Family; Visit Provider Specialist | DX: I65.29 Occlusion and stenosis of unspecified carotid artery (principal); M51.16 Intervertebral disc disorders with radiculopathy, lumbar region; E53.8 Deficiency of other specified B group vitamins; G62.89 Other specified polyneuropathies; G43.109 Migraine with aura, not intractable, without status migrainosus | CPT/HCPCS: 99214 ==

== ENCOUNTER → 2024-10-24 15:06 | Outpatient (BNVA) | payer MEDICAID, SELFPAY | PROVIDERS: PCP Nurse Practitioner Family; Visit Provider Anesthesiology Pain Medicine | DX: M79.18 Myalgia, other site (principal); M54.50 Low back pain, unspecified; M54.9 Dorsalgia, unspecified; G89.29 Other chronic pain; M54.2 Cervicalgia; Z09 Encounter for follow-up examination after completed treatment for conditions other than malignant neoplasm; M47.816 Spondylosis without myelopathy or radiculopathy, lumbar region; M51.16 Intervertebral disc disorders with radiculopathy, lumbar region; Z87.891 Personal history of nicotine dependence | CPT/HCPCS: 20553; 99214; J1010; J3490 ==

== ENCOUNTER → 2024-12-07 15:42 | Outpatient (BNVA) | payer MEDICAID, SELFPAY | PROVIDERS: PCP Nurse Practitioner Family; Visit Provider Specialist | DX: M17.0 Bilateral primary osteoarthritis of knee (principal); Z71.89 Other specified counseling | CPT/HCPCS: 20610; J1100; J2795; J3301; J9999 ==

== ENCOUNTER → 2024-12-16 10:00 | Outpatient (BNVA) | payer MEDICAID, MEDICARE, SELFPAY | PROVIDERS: PCP Nurse Practitioner Family; Visit Provider Nurse Practitioner Family | DX: Z90.3 Acquired absence of stomach [part of] (principal); E53.8 Deficiency of other specified B group vitamins; E55.9 Vitamin D deficiency, unspecified; R53.83 Other fatigue | CPT/HCPCS: 80053; 80061; 82306; 82607; 82728; 83550; 83735; 85025 ==

== ENCOUNTER 2024-12-20 12:48 | Outpatient (CLI) | payer MEDICARE, MEDICAID, SELFPAY | END 2024-12-20 12:49 | disposition home or self-care (01) | PROVIDERS: PCP Nurse Practitioner Family; Visit Provider Nurse Practitioner Family | DX: Z90.3 Acquired absence of stomach [part of] (principal); E53.8 Deficiency of other specified B group vitamins; E55.9 Vitamin D deficiency, unspecified; R53.83 Other fatigue | CPT/HCPCS: 36415; 84630 ==

== ENCOUNTER → 2025-03-06 08:37 | Outpatient (BNVA) | payer MEDICARE, MEDICAID, SELFPAY | PROVIDERS: PCP Nurse Practitioner Family; Visit Provider Anesthesiology Pain Medicine | DX: M79.18 Myalgia, other site (principal); M54.2 Cervicalgia; M54.9 Dorsalgia, unspecified; M47.816 Spondylosis without myelopathy or radiculopathy, lumbar region; M51.16 Intervertebral disc disorders with radiculopathy, lumbar region; G89.29 Other chronic pain | CPT/HCPCS: 20553; 99214; J1010; J3490 ==

== ENCOUNTER 2025-03-10 12:00 | Outpatient (CLI) | payer MEDICAID, SELFPAY ==
--- NOTE | 2025-03-10 12:15 | MR_ITS ---
WS: [id number] MRI CERVICAL SPINE NONCONTRAST HISTORY: M54.12 - Radiculopathy, cervical region COMPARISON: 03/06/2022 Technique: Multiplanar, multisequence noncontrast imaging of the cervical spine. Normal cervical alignment with no compression fracture or significant disc space narrowing. Signal within the cervical cord is normal. Visualized posterior fossa is unremarkable. Craniocervical junction, C1 and C2 relationship, odontoid process and soft tissues are normal. C2-C3: Normal. C3-C4: Small central disc protrusion and small osteophytes. No stenosis. C4-C5: Moderate-sized LEFT foraminal disc osteophyte complex. Moderate to severe LEFT foraminal stenosis. No central stenosis. C5-C6: Mild facet arthritis. No stenosis. C6-C7: No stenosis. Mild facet arthritis. C7-T1: Normal. Paraspinal soft tissue are normal. MR/MR cervical spin wo con* [id number] IMPRESSION: 1. No high-grade central stenosis. 2. Moderate sized LEFT foraminal disc osteophyte complex at C4-5 causing moder ate to severe severe narrowing of the LEFT foramen. 3. Mild facet joint arthropathy from C4-5 through C6-7.
== END 2025-03-10 12:01 | disposition home or self-care (01) ==
LOC: RAD 12:01
PROVIDERS: PCP Nurse Practitioner Family; Visit Provider Anesthesiology Pain Medicine
DX: M54.12 Radiculopathy, cervical region (principal); M50.21 Other cervical disc displacement, high cervical region; M25.78 Osteophyte, vertebrae; M48.02 Spinal stenosis, cervical region; M47.812 Spondylosis without myelopathy or radiculopathy, cervical region
CPT/HCPCS: 72141

== ENCOUNTER → 2025-03-13 14:40 | Outpatient (BNVA) | payer MEDICAID, SELFPAY | PROVIDERS: PCP Nurse Practitioner Family; Visit Provider Anesthesiology Pain Medicine | DX: M50.90 Cervical disc disorder, unspecified, unspecified cervical region (principal); M47.816 Spondylosis without myelopathy or radiculopathy, lumbar region; M51.16 Intervertebral disc disorders with radiculopathy, lumbar region; Z51.89 Encounter for other specified aftercare; G89.29 Other chronic pain | CPT/HCPCS: 99214 ==